=== PATIENT | female | born 1985 | race Caucasian/White ===

== ENCOUNTER → 2018-03-13 | Outpatient (CLI) | payer OTHER, MEDICAID ==
[2018-03-13 16:43] LABS: APPEARANCE,URINE TURBID; BILIRUBIN,URINE NEGATIVE (NEGATIVE); COLOR,URINE YELLOW; GLUCOSE, URINE NEGATIVE (NEGATIVE); KETONES,URINE TRACE mg/dL (NEGATIVE); LEUKOCYTE ESTERASE,URINE LARGE (NEGATIVE); NITRITE,URINE NEGATIVE (NEGATIVE); PROTEIN,URINE 100 mg/dL (NEGATIVE); URINE SPECIFIC GRAVITY 1.014; UROBILINOGEN,URINE NEGATIVE mg/dL (<2.0)
[2018-03-13 16:45] LABS: ABSOLUTE MONOCYTES (AUTO) 0.3 10^3/uL (0.1-1.4); EOSINOPHILS % (AUTO) 1.2 % (0-6); HEMATOCRIT 35.3 % (36.0-47.0); HEMOGLOBIN 11.7 g/dL (12.0-15.5); LYMPHOCYTES % (AUTO) 28.2 % (13-45); MEAN CORPUSCULAR HEMOGLOBIN 27.3 pg (27.0-33.4); MEAN CORPUSCULAR HGB CONC 33.1 g/dL (32.0-36.0); MEAN CORPUSCULAR VOLUME 82 fl (80-97); MONOCYTES % (AUTO) 10.1 % (3-13); PLATELET COUNT 293 10^3/uL (150-450); RED BLOOD COUNT 4.28 10^6/uL (3.72-5.28); RED CELL DISTRIBUTION WIDTH 15.3 % (11.5-14.0); SEGMENTED NEUTROPHILS % (AUTO) 59.5 % (42-78); TOTAL CELLS COUNTED % (AUTO) 100 %; WHITE BLOOD COUNT 3.4 10^3/uL (4.0-10.5)
[2018-03-13 17:05] LABS: ALANINE AMINOTRANSFERASE 19 U/L (9-52); ALBUMIN 4.1 g/dL (3.5-5.0); ALKALINE PHOSPHATASE 101 U/L (38-126); ANION GAP 15 (5-19); ASPARTATE AMINO TRANSFERASE 16 U/L (14-36); BILIRUBIN,DIRECT 0.4 mg/dL (0.0-0.4); BILIRUBIN,TOTAL 0.5 mg/dL (0.2-1.3); BLOOD UREA NITROGEN 21 mg/dL (7-20); CALCIUM 9.3 mg/dL (8.4-10.2); CARBON DIOXIDE 23 mmol/L (22-30); CHLORIDE 106 mmol/L (98-107); GLUCOSE 84 mg/dL (75-110); POTASSIUM 4.5 mmol/L (3.6-5.0); SODIUM 143.5 mmol/L (137-145)
== END ==
LOC: OD 15:32
PROVIDERS: ATTEND Internal Medicine Nephrology
DX: N18.2 Chronic kidney disease, stage 2 (mild) (principal); N20.0 Calculus of kidney
CPT/HCPCS: 36415; 80053; 81001; 83735; 85025

== ENCOUNTER 2018-09-19 11:35 | Inpatient (IN) | payer OTHER, MEDICAID ==
--- NOTE | 2018-09-19 12:01 | ER Document Report ---
ED Medical Screen (RME) - General Chief Complaint: Skin Problem Stated Complaint: SWELLING AROUND NEPHRO TUBE SITE Time Seen by Provider: 09/19/18 11:59 Mode of Arrival: Ambulatory Information source: Parent TRAVEL OUTSIDE OF THE [place] IN LAST 30 DAYS: No - HPI Patient complains to provider of: redness- back Onset: Yesterday - mom noticed red area in R lower back of pt. where nephrostomy tube was pulled several months ago. Mom also states recent fever and lethargy - Related Data Allergies/Adverse Reactions: No Known Allergies Allergy (Unverified 09/19/18 11:39) Physical Exam - Vital signs Vitals: Temp Pulse Resp BP Pulse Ox 99.1 F 86 20 120/75 99 09/19/18 11:45 09/19/18 11:45 09/19/18 11:45 09/19/18 11:45 09/19/18 11:45 Course - Vital Signs Vital signs: Temp Pulse Resp BP Pulse Ox 99.1 F 86 20 120/75 99 09/19/18 11:45 09/19/18 11:45 09/19/18 11:45 09/19/18 11:45 09/19/18 11:45 Doctor's Discharge - Discharge Referrals: Florencio ZABALA MD [Primary Care Provider] - Follow up as needed
[2018-09-19 12:50] LABS: APPEARANCE,URINE TURBID; BILIRUBIN,URINE NEGATIVE (NEGATIVE); COLOR,URINE YELLOW; GLUCOSE, URINE NEGATIVE (NEGATIVE); KETONES,URINE NEGATIVE (NEGATIVE); LEUKOCYTE ESTERASE,URINE LARGE (NEGATIVE); NITRITE,URINE NEGATIVE (NEGATIVE); PROTEIN,URINE 100 mg/dL (NEGATIVE); URINE SPECIFIC GRAVITY 1.005; UROBILINOGEN,URINE NEGATIVE mg/dL (<2.0)
[2018-09-19 14:41] LABS: ABSOLUTE LYMPHOCYTES (AUTO) 0.9 10^3/uL (0.5-4.7); ABSOLUTE MONOCYTES (AUTO) 0.7 10^3/uL (0.1-1.4); ABSOLUTE NEUT (AUTO) 3.7 10^3/uL (1.7-8.2); BASOPHILS % (AUTO) 0.8 % (0-2); EOSINOPHILS % (AUTO) 0.9 % (0-6); HEMATOCRIT 34.6 % (36.0-47.0); MEAN CORPUSCULAR HEMOGLOBIN 29.8 pg (27.0-33.4); MEAN CORPUSCULAR HGB CONC 34.5 g/dL (32.0-36.0); MEAN CORPUSCULAR VOLUME 86 fl (80-97); MONOCYTES % (AUTO) 13.5 % (3-13); PLATELET COUNT 250 10^3/uL (150-450); RED BLOOD COUNT 4.01 10^6/uL (3.72-5.28); RED CELL DISTRIBUTION WIDTH 14.6 % (11.5-14.0); SEGMENTED NEUTROPHILS % (AUTO) 68.8 % (42-78); TOTAL CELLS COUNTED % (AUTO) 100 %; WHITE BLOOD COUNT 5.4 10^3/uL (4.0-10.5)
[2018-09-19 14:51] LABS: ALANINE AMINOTRANSFERASE 15 U/L (9-52); ALBUMIN 3.7 g/dL (3.5-5.0); ALKALINE PHOSPHATASE 105 U/L (38-126); ANION GAP 12 (5-19); ASPARTATE AMINO TRANSFERASE 12 U/L (14-36); BILIRUBIN,DIRECT 0.3 mg/dL (0.0-0.4); BILIRUBIN,TOTAL 0.8 mg/dL (0.2-1.3); BLOOD UREA NITROGEN 15 mg/dL (7-20); CARBON DIOXIDE 26 mmol/L (22-30); CHLORIDE 103 mmol/L (98-107); GLUCOSE 86 mg/dL (75-110); POTASSIUM 5.1 mmol/L (3.6-5.0); SODIUM 140.6 mmol/L (137-145); TOTAL PROTEIN 7.4 g/dL (6.3-8.2)
--- NOTE | 2018-09-19 16:13 | RADIOLOGY REPORT (SQ) ---
EXAM DESCRIPTION: U/S RETROPERITON LTD COMPLETED DATE/TIME: 09/19/2018 2:38 pm REASON FOR STUDY: concern for urinoma/abscess in kidney COMPARISON: None. TECHNIQUE: Dynamic and static grayscale images acquired of the kidneys and bladder and recorded on P ACS. Additional selected color Doppler and spectral images recorded. LIMITATIONS: None. FINDINGS: RIGHT KIDNEY: Normal size. No solid masses identified. Mildly dilated right renal pelvis, 1.5 cm. No calcifications. LEFT KIDNEY: Normal size. Multiple left renal cystic areas, largest measuring 5.2 cm. No solid mas ses identified. No calcifications. BLADDER: Surgically absent. OTHER FINDINGS: No other significant finding. IMPRESSION: Multiple left renal cystic areas, largest measuring 5.2 cm. Mildly dilated right renal pelvis, 1.5 cm. TECHNICAL DOCUMENTATION: JOB ID: [id number] [place]-72 2010 [employer]- All Rights Reserved Reading location - IP/workstation name: [email or web address]
[2018-09-19] MEDS: FENTANYL CITRATE INJ/PF 100 MCG/2 ML AMPUL IV PRN ×2 (16:48→20:56)
[2018-09-19] MEDS ORDERED: PIPERACILLIN/TAZOBACTAM 3.375 GM VIAL IV ONE ×3 (17:30→22:39)
--- NOTE | 2018-09-19 17:30 | ER Document Report ---
ED General - General Chief Complaint: Skin Problem Stated Complaint: SWELLING AROUND NEPHRO TUBE SITE Time Seen by Provider: 09/19/18 11:59 Mode of Arrival: Ambulatory Information source: Patient, Parent TRAVEL OUTSIDE OF THE [place] 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 Mother notes that she had been feeling unwell for a few days and then began to complain of pain today along her left side at which time the mother noted market swelling. She had previously had a nephrostomy tube in this location which was removed in June. Has not had any problems with this since it had been removed until this week - Related Data Allergies/Adverse Reactions: No Known Allergies Allergy (Verified 09/19/18 12:08) Past Medical History - General Information source: Parent - Social History Smoking Status: Never Smoker Chew tobacco use (# tins/day): No Frequency of alcohol use: None Drug Abuse: None Family History: None Patient has suicidal ideation: No Patient has homicidal ideation: No Neurological Medical History: Reports: Hx Seizures Renal/ Medical History: Reports: Hx Kidney Stones. Denies: Hx Peritoneal Dialysis Past Surgical History: Reports: Hx Kidney (Renal Surgery), Hx Neurologic Surgery - spine, Hx Urinary Tract Surgery - bladder removed(neurogenic) Review of Systems - Review of Systems -: Yes All other systems reviewed and negative Physical Exam - Vital signs Vitals: Temp Pulse Resp BP Pulse Ox 99.1 F 86 20 120/75 99 09/19/18 11:45 09/19/18 11:45 09/19/18 11:45 09/19/18 11:45 09/19/18 11:45 - General General appearance: Alert In distress: Mild - HEENT Head: Other - Asymmetric syndromic facies Eyes: Normal Conjunctiva: Normal Cornea: Normal Extraocular movements intact: Yes Eyelashes: Normal Pupils: PERRL - Respiratory Respiratory status: No respiratory distress Chest status: Nontender Breath sounds: Normal Chest palpation: Normal - Cardiovascular Rhythm: Regular Heart sounds: Normal auscultation Murmur: No - Abdominal Inspection: Normal Bowel sounds: Normal Tenderness: Nontender - Back Back: Other - The left flank demonstrates a remarkable erythematous fluctuance and collection which comes to a punctate comedone inferior to the CVA along the left side. Palpable fluctuance, no active drainage - Extremities General upper extremity: Normal inspection, Nontender, Normal strength, Normal temperature General lower extremity: Normal inspection, Nontender, Normal strength, Normal temperature - Neurological Neuro grossly intact: Yes Cognition: Normal Orientation: AAOx4 Gi Coma Scale Eye Opening: Spontaneous [place] Coma Scale Verbal: Incomprehensible Gi Coma Scale Motor: Obeys Commands Gi Coma Scale Total: 12 Motor strength normal: LUE, RUE, LLE, RLE - Psychological Associated symptoms: Confused Course - Re-evaluation Re-evalutation: 09/19/18 17:26 33-year-old female who appears to have an abscess along the right flank at the site of a previous nephrostomy tube. As the mother notes that this patient only has 1 functioning kidney I am concerned that proceeding with CT the abdomen and pelvis could potentially be nephrotoxic in place in danger her single functioning kidney. We will obtain an ultrasound of the kidneys for investigation. Patient's kidney ultrasound makes no comment on the abscess which is obviously over the left kidney, because I am concerned this communicates with the deep space I have contacted [facility] to speak to their urologist Dr. Wright. Dr. Wright notes that without commenting he is not sure whether it is that urology can issue or a general surgery issue as such she would suggest proceeding with CT the abdomen and pelvis as she has a normal GFR and a creatinine which is now returned he thinks that it would be acceptable. We will plan for this patient to undergo CT abdomen and pelvis. Given that the end of my shift has now and that this will likely take an hour or greater I have signed out the care of this patient to Dr. Chaparro Loya who is agreed to help in the care of this patient. Plan will be for this patient undergo CT imaging of the abdomen and pelvis for better abscess characterization and consultation with appropriate service with disposition determination as deemed appropriate. - Vital Signs Vital signs: Temp Pulse Resp BP Pulse Ox 99.1 F 86 20 120/75 99 09/19/18 11:45 09/19/18 11:45 09/19/18 11:45 09/19/18 11:45 09/19/18 11:45 - Laboratory Result Diagrams: 09/19/18 14:00 09/19/18 14:00 Laboratory results interpreted by me: 09/19/18 09/19/18 09/19/18 12:24 14:00 14:00 Hct 34.6 L RDW 14.6 H Monocytes % 13.5 H Potassium 5.1 H Est GFR (Non-Af Amer) 57 L AST 12 L Urine Protein 100 H Urine Blood SMALL H Ur Leukocyte Esterase LARGE H Urine Ascorbic Acid 20 H Discharge - Discharge Clinical Impression: Abscess Back pain Qualifiers: Back pain location: back pain in unspecified location Chronicity: acute Back pain laterality: left Qualified Code(s): M54.9 - Dorsalgia, unspecified Referrals: Florencio ZABALA MD [ACTIVE STAFF] - Follow up as needed
--- NOTE | 2018-09-19 19:40 | RADIOLOGY REPORT (SQ) ---
EXAM DESCRIPTION: CT ABD/PELVIS WITH IV ONLY COMPLETED DATE/TIME: 09/19/2018 7:20 pm REASON FOR STUDY: concern for renal abscess COMPARISON: None. TECHNIQUE: CT scan of the abdomen and pelvis performed using helical scanning technique with dynamic intravenous contrast injection. No oral contrast. Images reviewed with lung, soft tissue, and bone windows. Reconstructed coronal and sagittal MPR images reviewed. Delayed images for evaluation of the urinary system also acquired. All images stored on PACS. All CT scanners at this facility use dose modulation, iterative reconstruction, and/or weight based d osing when appropriate to reduce radiation dose to as low as reasonably achievable (ALARA). [facility]: Dose Right [facility]: CareDose [facility]: Dose Right [facility]: Teradose 4D [facility]: Materialise CONTRAST TYPE AND DOSE: contrast/concentration: Isovue 350.00 mg/ml; Total Contrast Delivered: 67.0 ml; Total Saline Delivered: 20.8 ml RENAL FUNCTION: BUN 15 creatinine 1.12. RADIATION DOSE: CT Rad equipment meets quality standard of care and radiation dose reduction techniq ues were employed. CTDIvol: 5.0 - 6.1 mGy. DLP: 1020 mGy-cm.. LIMITATIONS: None. FINDINGS: LOWER CHEST: No significant findings. No nodules or infiltrates. LIVER: Normal size. No masses. No dilated ducts. SPLEEN: Normal size. No focal lesions. PANCREAS: No masses. No significant calcifications. No adjacent inflammation or peripancreatic fluid collections. Pancreatic duct not dilated. GALLBLADDER: No identified stones by CT criteria. No inflammatory changes to suggest cholecystitis. ADRENAL GLANDS: No significant masses or asymmetry. RIGHT KIDNEY AND URETER: Markedly abnormal appearance of the probable the kidney. Marked heterogenou s appearance with several central fluid collections and a few calcifications. Overall measurement ap proximately 4.5 cm. 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 Moderate hydronephrosis and hydroureter of the upper pole of the kidney. Moderate h ydronephrosis and hydroureter of the lower pole of the kidney. LEFT KIDNEY AND URETER: No solid masses. No significant calcifications. Severe hydronephrosis and hydroureter. Marked thinning of the cortex. Abnormal function with marked delay excretion. AORTA AND VESSELS: No aneurysm. No dissection. Renal arteries, SMA, celiac without stenosis. RETROPERITONEUM: No retroperitoneal adenopathy, hemorrhage or masses. BOWEL AND PERITONEAL CAVITY: No masses or inflammatory changes. No free fluid or peritoneal masses. APPENDIX: Not visualized. PELVIS: No mass. No free fluid. Previous cystectomy with ureteral diversion and ostomy in the right lower quadrant. ABDOMINAL WALL: No masses. No hernias. Indistinct fluid collection in the posterior left flank exten ding to the skin surface, measuring approximately 3.8 cm in width and 3.5 cm in depth. BONES: Surgical changes in the lower lumbar spine with hardware. OTHER: No other significant finding. IMPRESSION: 1. SURGICAL CHANGES OF CYSTECTOMY WITH URETERAL DIVERSION AND OSTOMY IN THE RIGHT LOWER QUADRANT. 2. 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 HYDRONEPHROSIS OF BOTH THE UPPER AND LO WER POLE OF THE KIDNEY. MARKED ABNORMAL APPEARANCE OF THE UPPER POLE OF THE KIDNEY. THIS COULD BE D UE TO CHRONIC OBSTRUCTION. CANNOT EXCLUDE INFECTION. NO PRIOR STUDIES SO CANNOT DETERMINE CHRONICIT Y OF THIS FINDING. 3. SEVERE HYDRONEPHROSIS OF THE LEFT KIDNEY WITH MARKED CORTICAL THINNING AND POOR FUNCTION WITH MARYAM YED EXCRETION. NO PRIOR STUDIES SO CANNOT DETERMINE CHRONICITY OF THIS FINDING. 4. FLUID COLLECTION IN THE SOFT TISSUES OF THE POSTERIOR LEFT FLANK. THIS IS PROBABLY RELATED TO PRE VIOUS PERCUTANEOUS NEPHROSTOMY TUBE. UNKNOWN WHEN THE TUBE WAS PRESENT OR MAY HAVE BEEN REMOVED. TH IS COULD BE FLUID SECONDARY TO RECENT PROCEDURE OR COULD BE ABSCESS. 5. NO OTHER SIGNIFICANT OR ACUTE FINDING IN THE ABDOMEN OR PELVIS ON CT SCAN WITH IV CONTRAST. TECHNICAL DOCUMENTATION: JOB ID: [id number] Quality ID # [id number]: Final reports with documentation of one or more dose reduction techniques (e.g., Au tomated exposure control, adjustment of the mA and/or kV according to patient size, use of iterative reconstruction technique) 2010 [employer]- All Rights Reserved Reading location - IP/workstation name: [email or web address]
--- NOTE | 2018-09-19 20:51 | PDOC CONSULTATION ---
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 Had back surgery and bladder resection with neoileostomy. Had left nephrostomy removed about 3 months ago. Yesterday atarted c/o pains left flank where old nephrostomy was. Tday brought to ER by her mother. Had a CT scan which showed subcutaneous abscess but appears involving part of muscle but not into the left kidney. C/o fever and chills today. Past Medical History Neurological Medical History: Reports: Seizures Past Surgical History Past Surgical History: Reports: Other - uretero-ileostomy Social History Smoking Status: Never Smoker Family History Family History: None Parental Family History Reviewed: Yes Children Family History Reviewed: No Sibling(s) Family History Reviewed.: No Medication/Allergy Allergies/Adverse Reactions: No Known Allergies Allergy (Verified 09/19/18 12:08) Review of Systems Constitutional: PRESENT: as per HPI Eyes: PRESENT: other - no visual/hearing changes Cardiovascular: PRESENT: other - no chest pains/cough Gastrointestinal: PRESENT: abdominal pain - left flank pains Physical Exam Vital Signs: Temp Pulse Resp BP Pulse Ox 98.6 F 85 16 111/72 100 09/19/18 20:04 09/19/18 20:04 09/19/18 20:04 09/19/18 20:04 09/19/18 20:04 General appearance: PRESENT: cooperative, mild distress Head exam: PRESENT: atraumatic Eye exam: PRESENT: conjunctiva pink Mouth exam: PRESENT: moist Neck exam: PRESENT: full ROM Respiratory exam: PRESENT: clear to auscultation megan Cardiovascular exam: PRESENT: RRR Pulses: PRESENT: normal radial pulses Vascular exam: PRESENT: normal capillary refill GI/Abdominal exam: PRESENT: soft, tenderness - left flank with erythematous swelling Rectal exam: PRESENT: deferred Neurological exam: PRESENT: alert, awake, oriented to person, oriented to place , oriented to time, oriented to situation Psychiatric exam: PRESENT: appropriate affect Results Impressions: Renal Ultrasound 09/19/18 14:02 IMPRESSION: Multiple left renal cystic areas, largest measuring 5.2 cm. Mildly dilated right renal pelvis, 1.5 cm. Abdomen/Pelvis CT 09/19/18 16:20 IMPRESSION: 1. SURGICAL CHANGES OF CYSTECTOMY WITH URETERAL DIVERSION AND OSTOMY IN THE RIGHT LOWER QUADRANT. 2. 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 HYDRONEPHROSIS OF BOTH THE UPPER AND LOWER POLE OF THE KIDNEY. MARKED ABNORMAL APPEARANCE OF THE UPPER POLE OF THE KIDNEY. THIS COULD BE DUE TO CHRONIC OBSTRUCTION. CANNOT EXCLUDE INFECTION. NO PRIOR STUDIES SO CANNOT DETERMINE CHRONICITY OF THIS FINDING. 3. SEVERE HYDRONEPHROSIS OF THE LEFT KIDNEY WITH MARKED CORTICAL THINNING AND POOR FUNCTION WITH DELAYED EXCRETION. NO PRIOR STUDIES SO CANNOT DETERMINE CHRONICITY OF THIS FINDING. 4. FLUID COLLECTION IN THE SOFT TISSUES OF THE POSTERIOR LEFT FLANK. THIS IS PROBABLY RELATED TO PREVIOUS PERCUTANEOUS NEPHROSTOMY TUBE. UNKNOWN WHEN THE TUBE WAS PRESENT OR MAY HAVE BEEN REMOVED. THIS COULD BE FLUID SECONDARY TO RECENT PROCEDURE OR COULD BE ABSCESS. 5. NO OTHER SIGNIFICANT OR ACUTE FINDING IN THE ABDOMEN OR PELVIS ON CT SCAN WITH IV CONTRAST. Assessment & Plan - Time Time Spent: 30 to 50 Minutes - Inpatient Certification Medical Necessity: Need For IV Fluids, Need for Pain Control, Need for IV Antibiotics, Need for Surgery - Plan Summary Plan Summary: IV antibiotics. NPO from [facility] For I&D left flank abscess tomorrow at 8 am.
[2018-09-19] MEDS ORDERED: ONDANSETRON HCL INJ/PF 4 MG/2 ML SDV IV PRN (20:57)
[2018-09-19] MEDS ORDERED: DEXTROSE 50%-WATER 25 GM/50 ML DISP.SYRIN IV PRN ×2 (20:57)
[2018-09-19] MEDS ORDERED: MAG HYDROX/AL HYDROX/SIMETH SUSP 30 ML UDCUP PO PRN (20:57)
[2018-09-19] MEDS ORDERED: PROMETHAZINE HCL 25 MG TABLET PO PRN (20:57)
[2018-09-19] MEDS ORDERED: NORMAL SALINE 1000 ML 1,000 ML IV PRN (20:57)
[2018-09-19] MEDS ORDERED: ACETAMINOPHEN 325 MG TABLET PO PRN (20:57)
[2018-09-19] MEDS ORDERED: GLUCAGON,HUMAN RECOMB 1 MG INJ SUBCUT PRN (20:57)
[2018-09-19] MEDS ORDERED: DEXTROSE 40% GEL 15 GM TUBE PO PRN ×2 (20:57)
[2018-09-19] MEDS ORDERED: PIPERACILLIN/TAZOBACTAM 3.375 GM VIAL IV PRN (21:00)
[2018-09-19] MEDS ORDERED: VANCOMYCIN HCL 0 MG in DEXTROSE 5%-WATER 250 ML IV NR (21:15)
[2018-09-19] MEDS ORDERED: VANCOMYCIN HCL INJ 500 MG VIAL IV PRN (21:34)
--- NOTE | 2018-09-19 21:37 | PDOC H&P ---
History of Present Illness Admission Date/PCP: 09/19/18 20:37 ABBY AVILES MD Patient complains of: Left flank pain History of Present Illness: ERIC WHITFIELD is a 33 year old female with history of mental retardation, neurogenic bladder with cystectomy and ureteral diversion plus ostomy in right lower quadrant, comes to the emergency department as she was complaining of left flank pain for 1 day. Her mother is at the bedside and tells me that the patient usually does no complaint of pain but last night she mentioned to her mother who thought it was because she was standing for too long. Today in the morning mother went to see that area as she was a still complaining of severe pain up to 9/10 intensity and found her skin erythematous, swollen, very tender to palpation, she did not notice any secretion. Mother tells me that she was a little bit lethargic, hot and sweaty, she did not take her temperature, denies chills, nausea, vomiting, dizziness, lightheadedness, hematuria or purulent secretions. Patient has urostomy bag with clear urine. Her mother tells me that the last May patient was found with a left kidney stone, as patient does not have that they could not place a stent, usually is placed to nephrostomy tubes one in the left flank and second 1 going to the urostomy bag. 10 days later after nephrostomy tubes placed the one that was going to the urostomy bag was removed and the second 1 was removed in June. Mother tells me that the skin infection is exactly in the area where the left flank nephrostomy tube was placed. On chronic nitrofurantoin 100 mg twice a day initiated by her infectious diseases doctor. CT of the pelvis shows a possible abscess in the posterior left flank with many surgical changes secondary to her cystectomy with ureteral diversion with ostomy in the right lower quadrant. Dr. Loyola from the general surgery department was contacted from the emergency department, he had a look at the CT scan and plan for abscess drainage tomorrow. Given 1 dose of IV Zosyn. Nephrostomy tubes placed by Dr. Billy Martines MD in [facility] Elias Ku MD Nephrology Bernabe Perry MD Past Medical History EENT Medical History: Reports: Eyes - Congenital eyes problem, Other - Congenital decreased hearing, uses right hearing aids Neurological Medical History: Reports: Seizures - History of seizure when she was very young, she does not have any seizures, Other - Mental Retardation Neurological History Note: Not on seizure medications Renal/ Medical History: Reports: Other - Neurogenic bladder, status post cystectomy Past Surgical History Past Surgical History: Cystectomy with ureteral diversion plus ostomy right lower quadrant 5 years ago approximately Past Surgical History: Reports: Other - uretero-ileostomy Social History Smoking Status: Never Smoker Frequency of Alcohol Use: None Hx Recreational Drug Use: No Hx Prescription Drug Abuse: No Past Social History Note: Lives with her mother who is at the bedside and her stepfather Family History Family History: None Family History: Mother 58 years old with no medical conditions. Father 57 years old unknown any medical condition Parental Family History Reviewed: Yes - As above Children Family History Reviewed: NA Sibling(s) Family History Reviewed.: NA Medication/Allergy Allergies/Adverse Reactions: No Known Allergies Allergy (Verified 09/19/18 12:08) Review of Systems Review of Systems: As outlined above, others negative Physical Exam Vital Signs: Temp Pulse Resp BP Pulse Ox 98.6 F 85 16 111/72 100 09/19/18 20:04 09/19/18 20:04 09/19/18 20:04 09/19/18 20:04 09/19/18 20:04 Additional comments: General appearance: Well-developed, well-nourished, alert and cooperative, and appears to be in no acute distress Head: Normocephalic Eyes: PEERL, EOMI, vision is grossly intact. Ears: External auditory canal and tympanic membranes clear, hearing severely decreased, use hearing aids nose: No nasal discharge. Throat: Oral cavity and pharynx normal. No inflammation, swelling, exudate or lesions. Neck: Neck supple, nontender without lymphadenopathy, masses or thyromegaly. Cardiac: Normal S1 and S2. No S3, S4 or murmurs. Rhythm is regular. There is no cyanosis or pallor. Extremities are warm and well perfused. Capillary refill is less than 2 seconds. No carotid bruits. Lungs: Clear to auscultation and percussion without rales, rhonchi, wheezing or diminished breath sounds. Not using accessory muscles. Abdomen: Positive bowel sounds. Soft. Nondistended, nontender. No guarding or rebound. No masses. No hepatosplenomegaly. Urostomy bag in the right lower quadrant with clear urine. Extremities: Right foot chronic nonpitting edema. Peripheral pulses intact. No varicosities. Neurological: Cranial nerves II through XII grossly intact. Strength and sensation symmetric and intact throughout. Reflexes 2+ throughout. Skin: Left posterior flank area with an area of erythema, edema, warmth, very tender to palpation, sizable 7 cm diameter, no active secretions, scars of prior nephrostomy tube in the middle of the lesion. Warm and dry. Psychiatric: The mental examination revealed the patient was oriented to person , place. Able to answer questions and keep a conversation. Results Laboratory Results: 09/19/18 09/19/18 09/19/18 12:24 12:24 14:00 WBC 5.4 RBC 4.01 Hgb 12.0 Hct 34.6 L MCV 86 MCH 29.8 MCHC 34.5 RDW 14.6 H Plt Count 250 Seg Neutrophils % 68.8 Lymphocytes % 16.0 Monocytes % 13.5 H Eosinophils % 0.9 Basophils % 0.8 Absolute Neutrophils 3.7 Absolute Lymphocytes 0.9 Absolute Monocytes 0.7 Absolute Eosinophils 0.0 Absolute Basophils 0.0 Sodium Potassium Chloride Carbon Dioxide Anion Gap BUN Creatinine Est GFR ( Amer) Glucose Calcium Total Bilirubin Direct Bilirubin AST ALT Alkaline Phosphatase Total Protein Albumin Urine Color YELLOW Urine Appearance TURBID Urine pH 7.0 Ur Specific Delmar 1.005 Urine Protein 100 H Urine Glucose (UA) NEGATIVE Urine Ketones NEGATIVE Urine Blood SMALL H Urine Nitrite NEGATIVE Urine Bilirubin NEGATIVE Urine Urobilinogen NEGATIVE Ur Leukocyte Esterase LARGE H Urine WBC (Auto) >182 Urine RBC (Auto) 16 Urine Bacteria (Auto) 3+ Urine WBC Clumps MANY Squamous Epi Cells Auto 2 Urine Mucus (Auto) OCC Urine Ascorbic Acid 20 H Urine HCG, Qual NEGATIVE 09/19/18 14:00 WBC RBC Hgb Hct MCV MCH MCHC RDW Plt Count Seg Neutrophils % Lymphocytes % Monocytes % Eosinophils % Basophils % Absolute Neutrophils Absolute Lymphocytes Absolute Monocytes Absolute Eosinophils Absolute Basophils Sodium 140.6 Potassium 5.1 H Chloride 103 Carbon Dioxide 26 Anion Gap 12 BUN 15 Creatinine 1.12 Est GFR ( Amer) > 60 Glucose 86 Calcium 9.0 Total Bilirubin 0.8 Direct Bilirubin 0.3 AST 12 L ALT 15 Alkaline Phosphatase 105 Total Protein 7.4 Albumin 3.7 Urine Color Urine Appearance Urine pH Ur Specific Delmar Urine Protein Urine Glucose (UA) Urine Ketones Urine Blood Urine Nitrite Urine Bilirubin Urine Urobilinogen Ur Leukocyte Esterase Urine WBC (Auto) Urine RBC (Auto) Urine Bacteria (Auto) Urine WBC Clumps Squamous Epi Cells Auto Urine Mucus (Auto) Urine Ascorbic Acid Urine HCG, Qual Impressions: Renal Ultrasound 09/19/18 14:02 IMPRESSION: Multiple left renal cystic areas, largest measuring 5.2 cm. Mildly dilated right renal pelvis, 1.5 cm. Abdomen/Pelvis CT 09/19/18 16:20 IMPRESSION: 1. SURGICAL CHANGES OF CYSTECTOMY WITH URETERAL DIVERSION AND OSTOMY IN THE RIGHT LOWER QUADRANT. 2. 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 HYDRONEPHROSIS OF BOTH THE UPPER AND LOWER POLE OF THE KIDNEY. MARKED ABNORMAL APPEARANCE OF THE UPPER POLE OF THE KIDNEY. THIS COULD BE DUE TO CHRONIC OBSTRUCTION. CANNOT EXCLUDE INFECTION. NO PRIOR STUDIES SO CANNOT DETERMINE CHRONICITY OF THIS FINDING. 3. SEVERE HYDRONEPHROSIS OF THE LEFT KIDNEY WITH MARKED CORTICAL THINNING AND POOR FUNCTION WITH DELAYED EXCRETION. NO PRIOR STUDIES SO CANNOT DETERMINE CHRONICITY OF THIS FINDING. 4. FLUID COLLECTION IN THE SOFT TISSUES OF THE POSTERIOR LEFT FLANK. THIS IS PROBABLY RELATED TO PREVIOUS PERCUTANEOUS NEPHROSTOMY TUBE. UNKNOWN WHEN THE TUBE WAS PRESENT OR MAY HAVE BEEN REMOVED. THIS COULD BE FLUID SECONDARY TO RECENT PROCEDURE OR COULD BE ABSCESS. 5. NO OTHER SIGNIFICANT OR ACUTE FINDING IN THE ABDOMEN OR PELVIS ON CT SCAN WITH IV CONTRAST. Assessment & Plan - Diagnosis (1) Abscess or cellulitis of flank Is this a current diagnosis for this admission?: Yes Plan: Patient comes with left flank pain for 1 day, CT shows a possible abscess which is verified by physical examination. Dr. Loyola from the general surgery department evaluated the CT and plan for I&D tomorrow. Patient will be n.p.o. after midnight. In the meantime she will be on IV Zosyn and IV vancomycin. Hopefully patient does not have more complications as the abscess is located where the nephrostomy tube was placed Ab[place] this year. Please follow blood cultures. She will be on IV pain medication and nausea medicine as needed. (2) UTI (urinary tract infection) Qualifiers: Encounter type: initial encounter Is this a current diagnosis for this admission?: Yes Plan: Urinalysis positive for urinary tract infection, patient has a complicated urological history history. We do not have prior urinalysis or urine cultures. Will be on IV Zosyn and IV vancomycin for the abscess that will cover for this UTI. Will need records from her prior admission at [facility]. Please follow urine cultures. I will place a consultation for Dr. Perry that can see her Friday or Friday, at his convenience. (3) History of creation of ostomy Is this a current diagnosis for this admission?: Yes Plan: Patient has a urostomy bag as she has history of cystectomy secondary to neurogenic bladder with ureteral diversion. Urine clear. (4) DVT prophylaxis Is this a current diagnosis for this admission?: Yes Plan: Heparin - Time Time Spent: 50 to 70 Minutes Anticipated discharge: Home - Inpatient Certification Based on my medical assessment, after consideration of the patient's comorbidities, presenting symptoms, or acuity I expect that the services needed warrant INPATIENT care.: Yes I certify that my determination is in accordance with my understanding of Medicare's requirements for reasonable and necessary INPATIENT services [42 CFR 412.3e].: Yes Medical Necessity: Risk of Complication if Not Cared For in Hospital - Plan Summary Plan Summary: Plan discussed with mother who is at the bedside, agree with it
[2018-09-19] MEDS ORDERED: VANCOMYCIN HCL 500 MG in DEXTROSE 5%-WATER 100 ML IV ONE (22:00)
[2018-09-19] MEDS ORDERED: VANCOMYCIN HCL INJ 500 MG VIAL ONE (22:38)
[2018-09-19] MEDS: HEPARIN SOD (PORCINE) 5,000 UNIT/ML 1 ML SYRINGE SUBCUT SCH (22:54)
[2018-09-19] MEDS: MORPHINE SULFATE 10 MG/ML INJ IV PRN (23:21)
[2018-09-20] MEDS: PIPERACILLIN/TAZOBACTAM 3.375 GM VIAL IV SCH ×2 (00:49→05:30)
[2018-09-20] MEDS: HEPARIN SOD (PORCINE) 5,000 UNIT/ML 1 ML SYRINGE SUBCUT SCH ×3 (05:02→21:01)
[2018-09-20 06:59] LABS: ABSOLUTE EOSINOPHILS # (AUTO) 0.1 10^3/uL (0.0-0.6); ABSOLUTE LYMPHOCYTES (AUTO) 0.6 10^3/uL (0.5-4.7); ABSOLUTE MONOCYTES (AUTO) 0.7 10^3/uL (0.1-1.4); ABSOLUTE NEUT (AUTO) 4.9 10^3/uL (1.7-8.2); BASOPHILS % (AUTO) 0.7 % (0-2); EOSINOPHILS % (AUTO) 0.8 % (0-6); HEMATOCRIT 32.2 % (36.0-47.0); HEMOGLOBIN 10.8 g/dL (12.0-15.5); LYMPHOCYTES % (AUTO) 9.2 % (13-45); MEAN CORPUSCULAR HEMOGLOBIN 29.2 pg (27.0-33.4); MEAN CORPUSCULAR HGB CONC 33.6 g/dL (32.0-36.0); MEAN CORPUSCULAR VOLUME 87 fl (80-97); MONOCYTES % (AUTO) 11.8 % (3-13); PLATELET COUNT 235 10^3/uL (150-450); RED CELL DISTRIBUTION WIDTH 14.3 % (11.5-14.0); SEGMENTED NEUTROPHILS % (AUTO) 77.5 % (42-78); TOTAL CELLS COUNTED % (AUTO) 100 %; WHITE BLOOD COUNT 6.3 10^3/uL (4.0-10.5)
[2018-09-20 07:02] LABS: INTERNATIONAL RATION (INR) 1.14; PROTHROMBIN TIME 15.1 SEC (11.4-15.4)
[2018-09-20 07:03] LABS: PARTIAL THROMBOPLASTIN TIME 31.5 SEC (23.5-35.8)
[2018-09-20 07:18] LABS: ANION GAP 10 (5-19); BLOOD UREA NITROGEN 15 mg/dL (7-20); CALCIUM 8.5 mg/dL (8.4-10.2); CARBON DIOXIDE 24 mmol/L (22-30); CHLORIDE 109 mmol/L (98-107); GLUCOSE 127 mg/dL (75-110); POTASSIUM 4.4 mmol/L (3.6-5.0); SODIUM 142.8 mmol/L (137-145)
[2018-09-20] MEDS ORDERED: LIDOCAINE 1% INJ-PF (10 MG/ML) 30 ML SDV ONE (07:35)
[2018-09-20] MEDS ORDERED: LIDOCAINE 2% INJ-PF (20 MG/ML) 10 ML AMPUL ONE (07:55)
[2018-09-20] MEDS ORDERED: FENTANYL CITRATE INJ/PF 100 MCG/2 ML AMPUL ONE ×2 (07:55→09:08)
[2018-09-20] MEDS ORDERED: MIDAZOLAM 2 MG/2 ML INJ ONE (07:55)
[2018-09-20] MEDS ORDERED: PROPOFOL INJ 200 MG/20 ML VIAL IV ONE (07:56)
[2018-09-20] MEDS ORDERED: DIPHENHYDRAMINE HCL 50 MG/ML VIAL IV PRN (08:39)
[2018-09-20] MEDS ORDERED: PROMETHAZINE HCL INJ 25 MG/1 ML VIAL IV PRN ×2 (08:39)
[2018-09-20] MEDS ORDERED: LIDOCAINE 0.5% INJ-PF (5 MG/ML) 50 ML SDV ONE (08:39)
[2018-09-20] MEDS ORDERED: ONDANSETRON HCL INJ/PF 4 MG/2 ML SDV IV PRN (08:39)
[2018-09-20] MEDS ORDERED: MEPERIDINE HCL/PF INJ 25 MG/1 ML DISP.SYRIN IV PRN (08:39)
[2018-09-20] MEDS ORDERED: FENTANYL CITRATE INJ/PF 100 MCG/2 ML AMPUL IV PRN ×3 (08:39)
[2018-09-20] MEDS ORDERED: BUPIVACAINE HCL 0.5 % INJ/PF 30 ML SDV ONE (08:43)
[2018-09-20] MEDS: MORPHINE SULFATE 10 MG/ML INJ IV PRN ×2 (10:54→21:04)
[2018-09-20] MEDS: PIPERACILLIN SODIUM/TAZOBACTAM 3.375 GM in NORMAL SALINE 100 ML IV SCH ×3 (13:05→23:09)
--- NOTE | 2018-09-20 15:39 | PDOC PROGRESS REPORT ---
Subjective Progress Note for:: 09/20/18 Subjective:: 09/19/18: ERIC WHITFIELD is a 33 year old female with a 1 day history of left flank pain. Her mother, acting as her historian, relates that Eric began complaining of pain on the evening prior to admission. The pain gradually increased over the next through the night and was persistent throughout the day resulting in her emergency room visit. Pain was a constant aching in the lower posterior left flank which started as a mild pain and progressed to being a severe pain by the time she was seen in the emergency room. Eric's pain was accompanied by increasing redness and swelling with tenderness to touch in the skin of the left lower posterior flank. Eric also had the associated symptoms of lethargy , diaphoresis and subjective fever. Her mother denies chills, nausea, vomiting , dizziness, lightheadedness, hematuria or purulent secretions. Eric has a history of kidney stones with nephrostomy tubes placed in the past. The current site of pain is in the area where a nephrostomy tube was removed 3 months ago. She also has a past medical history of mental retardation, neurogenic bladder with cystectomy and ureteral diversion plus ostomy in right lower quadrant and takes nitrofurantoin 100 mg twice a day on a chronic basis as initiated by her infectious disease physician for suppression of her chronic urinary tract infections. Nephrostomy tubes placed by Dr. Billy Martines MD in [facility]; Urology: Elias Ku MD; Nephrology: Bernabe Perry MD In the emergency room a CT of the pelvis showed a possible abscess in the posterior left flank with many surgical changes secondary to her cystectomy with ureteral diversion with ostomy in the right lower quadrant. Dr. Loyola from the general surgery department was contacted and plans for abscess drainage tomorrow. She was started on IV antibiotics with Zosyn and vancomycin and admitted to the hospitalist service for further care. 09/20/18: Eric has just returned from surgery where she had an incision and drainage of her left flank abscess. Dr. Loyola and I have discussed and great detail and her abscess was through the subcutaneous tissue and involved the upper layer of fascia but did not penetrate through the muscular layer. A large volume of pus was drained and a culture was obtained. Eric has been doing fairly well postoperatively with no nausea or vomiting. She remains somewhat lethargic and somnolent although she is easily aroused and answers questions appropriately. She admits that she has some pain in her back but it is better than it had been earlier. I have discussed the fact that the patient will need to be on broad- spectrum IV antibiotics until her culture results are available and an appropriate focused antibiotic therapy regiment can be initiated. Reason For Visit: LEFT LOWER BACK ABSCESS Physical Exam Vital Signs: Temp Pulse Resp BP Pulse Ox 100.2 F 106 H 15 91/53 L 96 09/20/18 07:08 09/20/18 07:08 09/20/18 07:08 09/20/18 07:08 09/20/18 07:08 Intake & Output 09/18/18 09/19/18 09/20/18 23:59 23:59 22:59 Intake Total 322 Output Total 775 Balance -453 Weight 62.1 kg 62.1 kg General appearance: PRESENT: no acute distress, cooperative, other - Mildly lethargic and somnolent but easily arousable Head exam: PRESENT: atraumatic, normocephalic Eye exam: PRESENT: conjunctiva pink, EOMI Ear exam: PRESENT: normal external ear exam. ABSENT: drainage Mouth exam: PRESENT: dry mucosa, neck supple Neck exam: ABSENT: JVD, thyromegaly, tracheal deviation Respiratory exam: PRESENT: clear to auscultation megan, symmetrical, unlabored Cardiovascular exam: PRESENT: RRR. ABSENT: clicks, diastolic murmur, gallop, rubs, systolic murmur Pulses: PRESENT: normal radial pulses, normal dorsalis pedis pul Vascular exam: PRESENT: normal capillary refill. ABSENT: pallor GI/Abdominal exam: PRESENT: normal bowel sounds, soft Rectal exam: PRESENT: deferred Extremities exam: ABSENT: joint swelling, pedal edema Musculoskeletal exam: PRESENT: tenderness - Tenderness noted in the left flank region posteriorly. There is a postoperative dressing in this area and the patient does experience pain in the area is palpated lightly.. ABSENT: deformity, dislocation Neurological exam: PRESENT: alert, oriented to person, oriented to place, oriented to time, oriented to situation, CN II-XII grossly intact. ABSENT: motor sensory deficit Psychiatric exam: PRESENT: appropriate affect, normal mood Skin exam: PRESENT: dry, warm, other - Left flank wound, as previously mentioned , covered by surgical dressing which is not removed for my evaluation.. ABSENT : jaundice, rash, urticaria Results Laboratory Results: 09/20/18 06:48 09/20/18 06:48 09/20/18 09/20/18 09/20/18 06:48 06:48 06:48 WBC 6.3 RBC 3.70 L Hgb 10.8 L Hct 32.2 L MCV 87 MCH 29.2 MCHC 33.6 RDW 14.3 H Plt Count 235 Seg Neutrophils % 77.5 Lymphocytes % 9.2 L Monocytes % 11.8 Eosinophils % 0.8 Basophils % 0.7 Absolute Neutrophils 4.9 Absolute Lymphocytes 0.6 Absolute Monocytes 0.7 Absolute Eosinophils 0.1 Absolute Basophils 0.0 Sodium 142.8 Potassium 4.4 Chloride 109 H Carbon Dioxide 24 Anion Gap 10 BUN 15 Creatinine 1.27 H Est GFR ( Amer) 59 L Est GFR (Non-Af Amer) 49 L Glucose 127 H Lactic Acid < 0.5 L Calcium 8.5 Impressions: Renal Ultrasound 09/19/18 14:02 IMPRESSION: Multiple left renal cystic areas, largest measuring 5.2 cm. Mildly dilated right renal pelvis, 1.5 cm. Abdomen/Pelvis CT 09/19/18 16:20 IMPRESSION: 1. SURGICAL CHANGES OF CYSTECTOMY WITH URETERAL DIVERSION AND OSTOMY IN THE RIGHT LOWER QUADRANT. 2. 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 HYDRONEPHROSIS OF BOTH THE UPPER AND LOWER POLE OF THE KIDNEY. MARKED ABNORMAL APPEARANCE OF THE UPPER POLE OF THE KIDNEY. THIS COULD BE DUE TO CHRONIC OBSTRUCTION. CANNOT EXCLUDE INFECTION. NO PRIOR STUDIES SO CANNOT DETERMINE CHRONICITY OF THIS FINDING. 3. SEVERE HYDRONEPHROSIS OF THE LEFT KIDNEY WITH MARKED CORTICAL THINNING AND POOR FUNCTION WITH DELAYED EXCRETION. NO PRIOR STUDIES SO CANNOT DETERMINE CHRONICITY OF THIS FINDING. 4. FLUID COLLECTION IN THE SOFT TISSUES OF THE POSTERIOR LEFT FLANK. THIS IS PROBABLY RELATED TO PREVIOUS PERCUTANEOUS NEPHROSTOMY TUBE. UNKNOWN WHEN THE TUBE WAS PRESENT OR MAY HAVE BEEN REMOVED. THIS COULD BE FLUID SECONDARY TO RECENT PROCEDURE OR COULD BE ABSCESS. 5. NO OTHER SIGNIFICANT OR ACUTE FINDING IN THE ABDOMEN OR PELVIS ON CT SCAN WITH IV CONTRAST. Assessment & Plan - Diagnosis (1) Abscess or cellulitis of flank Is this a current diagnosis for this admission?: Yes Plan: Patient will be continued on broad-spectrum antibiotics utilizing Zosyn and vancomycin until such time as her blood/wound/urine culture and sensitivities enable a reasonable focused antibiotic therapy plan. Daily CBCs and metabolic profiles will be obtained. At the time of admission there is no evidence to support the diagnosis of sepsis. (2) History of nephrolithiasis Is this a current diagnosis for this admission?: Yes Plan: Patient has history of nephrolithiasis in the past. We will make a distinct effort at keeping her well-hydrated and follow her daily laboratory evaluations including a CBC metabolic profile and a magnesium level. (3) Chronic urinary tract infection, suppressed Is this a current diagnosis for this admission?: Yes Plan: Patient has a history of chronic urinary tract infection and has been on suppressive therapy utilizing Macrobid. This should be re-continued after she has finished her acute antibiotic therapy for her left flank abscess. (4) DVT prophylaxis Is this a current diagnosis for this admission?: Yes Plan: Patient will be continued on DVT prophylaxis utilizing SCDs and heparin. (5) Mental impairment Is this a current diagnosis for this admission?: Yes Plan: Patient has a history of mild chronic mental impairment. I will make every effort to make sure that she understands the details of her medical care and I will do my best to enable her to make decisions or at least participate in making decisions about her medical care with her mother. - Time Time Spent with patient: Less than 15 minutes
[2018-09-20] MEDS: VANCOMYCIN HCL 1,250 MG in DEXTROSE 5%-WATER 250 ML IV SCH (15:56)
[2018-09-20] MEDS: NORMAL SALINE 1000 ML 1,000 ML IV PRN (20:51)
--- NOTE | 2018-09-20 21:21 | OPERATIVE REPORT E ---
Operative Report NAME: ERIC WHITFIELD : 1985 AGE: 33Y DATE OF SURGERY: 09/20/2018 ROOM: 415 PREOPERATIVE DIAGNOSIS: ABSCESS OF THE LEFT LEG. POSTOPERATIVE DIAGNOSIS: ABSCESS OF THE LEFT LEG, TO INCLUDE MUSCLE. OPERATION: Incision and drainage of abscess to the muscle with pulse lavage and packing. SURGEON: SYDNEY NELSON M.D. ANESTHESIA: Local MAC. INDICATION: This is a 33-year-old female who had a previous nephrostomy tube removed from the left flank about 3 months ago. The patient noted a lump in the left flank 2 days ago that is tender and warm. 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 DESCRIPTION OF PROCEDURE: After adequate IV sedation the patient was placed in a right lateral decubitus position and the left flank was then prepped and draped in the usual sterile fashion. Appropriate timeout was then called. Next, 1% lidocaine was then injected through the skin around the bulging site on the left flank. A transverse incision was made over the bulge and a gush of pus extruded out. A sample of pus was sent for C and S. The cavity was subsequently finger palpated and appears to be going medially towards the iliac site. The incision is extended medially for a total distance of about 7 cm. The area was pulse lavaged with a liter of saline and further palpation noted that the abscess cavity going underneath the fascia towards the muscle. The fascia was then anesthetized with lidocaine and was subsequently divided with the use of cautery. The abscess cavity appears to have stopped right on the muscle. The abscess cavity was again pulse lavaged with 2 liters of saline for a total of 3 liters. Hemostasis was then controlled with cautery. The cavity was subsequently packed with a bottle of half inch Iodoform gauze. A sterile 4 x 4 and ABD pads were placed over the packing. The patient tolerated the procedure well. Needle, instrument and sponge counts were all correct. Estimated blood loss about 30 mL. Just prior to packing, however, the area was injected with 0.5% Marcaine about 30 mL, this is more for pain control. The patient was then brought to the recovery room in satisfactory condition. DICTATING PHYSICIAN: SYDNEY NELSON M.D. [id number] PHY#: [id number] ID: [id number] JOB#: [id number] ACCT: [id number] cc:SYDNEY NELSON M.D. >
[2018-09-21] MEDS: OXYCODONE-ACETAMINOPHEN 5-325 MG TABLET PO PRN ×2 (04:51→13:38)
[2018-09-21] MEDS: NORMAL SALINE 1000 ML 1,000 ML IV PRN ×2 (04:53→21:27)
[2018-09-21] MEDS: PIPERACILLIN SODIUM/TAZOBACTAM 3.375 GM in NORMAL SALINE 100 ML IV SCH ×3 (06:25→18:07)
[2018-09-21] MEDS: HEPARIN SOD (PORCINE) 5,000 UNIT/ML 1 ML SYRINGE SUBCUT SCH ×3 (06:29→21:27)
[2018-09-21 10:00] LABS: MEAN CORPUSCULAR VOLUME 88 fl (80-97)
[2018-09-21 10:05] LABS: HEMATOCRIT 28.6 % (36.0-47.0); HEMOGLOBIN 9.7 g/dL (12.0-15.5); MEAN CORPUSCULAR HEMOGLOBIN 29.6 pg (27.0-33.4); MEAN CORPUSCULAR HGB CONC 33.9 g/dL (32.0-36.0); PLATELET COUNT 203 10^3/uL (150-450); RED BLOOD COUNT 3.26 10^6/uL (3.72-5.28); RED CELL DISTRIBUTION WIDTH 14.6 % (11.5-14.0)
[2018-09-21 10:06] LABS: WHITE BLOOD COUNT 2.9 10^3/uL (4.0-10.5)
[2018-09-21] MEDS: VANCOMYCIN HCL 1,250 MG in DEXTROSE 5%-WATER 250 ML IV SCH (10:18)
[2018-09-21 10:22] LABS: ALANINE AMINOTRANSFERASE 10 U/L (9-52); ALBUMIN 2.8 g/dL (3.5-5.0); ALKALINE PHOSPHATASE 70 U/L (38-126); ANION GAP 10 (5-19); ASPARTATE AMINO TRANSFERASE 12 U/L (14-36); BILIRUBIN,DIRECT 0.1 mg/dL (0.0-0.4); BILIRUBIN,TOTAL 0.4 mg/dL (0.2-1.3); BLOOD UREA NITROGEN 15 mg/dL (7-20); CALCIUM 8.3 mg/dL (8.4-10.2); CARBON DIOXIDE 23 mmol/L (22-30); CHLORIDE 110 mmol/L (98-107); GLUCOSE 117 mg/dL (75-110); POTASSIUM 4.3 mmol/L (3.6-5.0); SODIUM 142.7 mmol/L (137-145); TOTAL PROTEIN 5.9 g/dL (6.3-8.2)
--- NOTE | 2018-09-21 16:06 | PDOC PROGRESS REPORT ---
Subjective Progress Note for:: 09/21/18 Subjective:: 09/19/18: ERIC WHITFIELD is a 33 year old female with a 1 day history of left flank pain. Her mother, acting as her historian, relates that Eric began complaining of pain on the evening prior to admission. The pain gradually increased over the next through the night and was persistent throughout the day resulting in her emergency room visit. Pain was a constant aching in the lower posterior left flank which started as a mild pain and progressed to being a severe pain by the time she was seen in the emergency room. Eric's pain was accompanied by increasing redness and swelling with tenderness to touch in the skin of the left lower posterior flank. Eric also had the associated symptoms of lethargy , diaphoresis and subjective fever. Her mother denies chills, nausea, vomiting , dizziness, lightheadedness, hematuria or purulent secretions. Eric has a history of kidney stones with nephrostomy tubes placed in the past. The current site of pain is in the area where a nephrostomy tube was removed 3 months ago. She also has a past medical history of mental retardation, neurogenic bladder with cystectomy and ureteral diversion plus ostomy in right lower quadrant and takes nitrofurantoin 100 mg twice a day on a chronic basis as initiated by her infectious disease physician for suppression of her chronic urinary tract infections. Nephrostomy tubes placed by Dr. Billy Martines MD in [facility]; Urology: Elias Ku MD; Nephrology: Bernabe Perry MD In the emergency room a CT of the pelvis showed a possible abscess in the posterior left flank with many surgical changes secondary to her cystectomy with ureteral diversion with ostomy in the right lower quadrant. Dr. Loyola from the general surgery department was contacted and plans for abscess drainage tomorrow. She was started on IV antibiotics with Zosyn and vancomycin and admitted to the hospitalist service for further care. 09/20/18: Eric has just returned from surgery where she had an incision and drainage of her left flank abscess. Dr. Loyola and I have discussed and great detail and her abscess was through the subcutaneous tissue and involved the upper layer of fascia but did not penetrate through the muscular layer. A large volume of pus was drained and a culture was obtained. Eric has been doing fairly well postoperatively with no nausea or vomiting. She remains somewhat lethargic and somnolent although she is easily aroused and answers questions appropriately. She admits that she has some pain in her back but it is better than it had been earlier. I have discussed the fact that the patient will need to be on broad- spectrum IV antibiotics until her culture results are available and an appropriate focused antibiotic therapy regiment can be initiated. 09/21/18: Eric is in good spirits today and she feels much better than she did yesterday when she was just waking up from surgery. She has been eating well without nausea or vomiting and she has not experienced any significant anterior or upper abdominal pain nor she had diarrhea or constipation. She continues to have pain localized to her posterior left lower flank area and seems to be improving since her incision and drainage. There is still a surgical dressing over the area and this is not disturbed for my evaluation. At the time my evaluation the culture and sensitivity reports were not yet available for inclusion in this dictation. Eric and her mother deny cough, chest pain, palpitations, dyspnea, wheezing, and fever or chills. Reason For Visit: LEFT LOWER BACK ABSCESS Physical Exam Vital Signs: Temp Pulse Resp BP Pulse Ox 98.4 F 81 16 110/63 100 09/21/18 12:00 09/21/18 12:00 09/21/18 12:00 09/21/18 12:00 09/21/18 12:00 Intake & Output 09/20/18 09/20/18 09/21/18 00:59 23:59 23:59 Intake Total 1772 Output Total Balance 1772 Weight 67.4 kg General appearance: PRESENT: no acute distress, cooperative Head exam: PRESENT: atraumatic, normocephalic Eye exam: PRESENT: conjunctiva pink, EOMI Ear exam: PRESENT: normal external ear exam. ABSENT: bleeding, drainage Mouth exam: PRESENT: moist, neck supple Neck exam: ABSENT: JVD, tracheal deviation Respiratory exam: PRESENT: clear to auscultation megan, symmetrical, unlabored Cardiovascular exam: PRESENT: RRR. ABSENT: clicks, gallop, rubs Vascular exam: PRESENT: normal capillary refill. ABSENT: pallor GI/Abdominal exam: PRESENT: normal bowel sounds, soft Rectal exam: PRESENT: deferred Extremities exam: ABSENT: joint swelling, pedal edema Musculoskeletal exam: PRESENT: full ROM, normal inspection Neurological exam: PRESENT: alert, oriented to person, oriented to place, oriented to time, oriented to situation, CN II-XII grossly intact. ABSENT: motor sensory deficit Psychiatric exam: PRESENT: appropriate affect, normal mood, other - Mild chronic intellectual impairment is noted. Skin exam: PRESENT: dry, warm, other - There is a left posterior flank abscess which is draining under her surgical dressing. I would not evaluated the actual wound due to the surgical dressings being present in my hesitancy to disturb them.. ABSENT: jaundice, rash, urticaria Results Laboratory Results: 09/21/18 09:55 09/21/18 09:55 09/21/18 09/21/18 09:55 09:55 WBC 2.9 L D RBC 3.26 L Hgb 9.7 L Hct 28.6 L MCV 88 MCH 29.6 MCHC 33.9 RDW 14.6 H Plt Count 203 Sodium 142.7 Potassium 4.3 Chloride 110 H Carbon Dioxide 23 Anion Gap 10 BUN 15 Creatinine 1.37 H Est GFR ( Amer) 54 L Est GFR (Non-Af Amer) 45 L Glucose 117 H Calcium 8.3 L Total Bilirubin 0.4 AST 12 L ALT 10 Alkaline Phosphatase 70 Total Protein 5.9 L Albumin 2.8 L Impressions: Renal Ultrasound 09/19/18 14:02 IMPRESSION: Multiple left renal cystic areas, largest measuring 5.2 cm. Mildly dilated right renal pelvis, 1.5 cm. Abdomen/Pelvis CT 09/19/18 16:20 IMPRESSION: 1. SURGICAL CHANGES OF CYSTECTOMY WITH URETERAL DIVERSION AND OSTOMY IN THE RIGHT LOWER QUADRANT. 2. 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 HYDRONEPHROSIS OF BOTH THE UPPER AND LOWER POLE OF THE KIDNEY. MARKED ABNORMAL APPEARANCE OF THE UPPER POLE OF THE KIDNEY. THIS COULD BE DUE TO CHRONIC OBSTRUCTION. CANNOT EXCLUDE INFECTION. NO PRIOR STUDIES SO CANNOT DETERMINE CHRONICITY OF THIS FINDING. 3. SEVERE HYDRONEPHROSIS OF THE LEFT KIDNEY WITH MARKED CORTICAL THINNING AND POOR FUNCTION WITH DELAYED EXCRETION. NO PRIOR STUDIES SO CANNOT DETERMINE CHRONICITY OF THIS FINDING. 4. FLUID COLLECTION IN THE SOFT TISSUES OF THE POSTERIOR LEFT FLANK. THIS IS PROBABLY RELATED TO PREVIOUS PERCUTANEOUS NEPHROSTOMY TUBE. UNKNOWN WHEN THE TUBE WAS PRESENT OR MAY HAVE BEEN REMOVED. THIS COULD BE FLUID SECONDARY TO RECENT PROCEDURE OR COULD BE ABSCESS. 5. NO OTHER SIGNIFICANT OR ACUTE FINDING IN THE ABDOMEN OR PELVIS ON CT SCAN WITH IV CONTRAST. Assessment & Plan - Diagnosis (1) Abscess or cellulitis of flank Is this a current diagnosis for this admission?: Yes Plan: Patient will be continued on broad-spectrum antibiotics utilizing Zosyn and vancomycin until such time as her blood/wound/urine culture and sensitivities enable a reasonable focused antibiotic therapy plan. Daily CBCs and metabolic profiles will be obtained. At the time of admission there is no evidence to support the diagnosis of sepsis. (2) History of nephrolithiasis Is this a current diagnosis for this admission?: Yes Plan: Patient has history of nephrolithiasis in the past. We will make a distinct effort at keeping her well-hydrated and follow her daily laboratory evaluations including a CBC metabolic profile and a magnesium level. (3) Chronic urinary tract infection, suppressed Is this a current diagnosis for this admission?: Yes Plan: Patient has a history of chronic urinary tract infection and has been on suppressive therapy utilizing Macrobid. This should be re-continued after she has finished her acute antibiotic therapy for her left flank abscess. (4) DVT prophylaxis Is this a current diagnosis for this admission?: Yes Plan: Patient will be continued on DVT prophylaxis utilizing SCDs and heparin. (5) Mental impairment Is this a current diagnosis for this admission?: Yes Plan: Patient has a history of mild chronic intellectual impairment. I will make every effort to make sure that she understands the details of her medical care and I will do my best to enable her to make decisions or at least participate in making decisions about her medical care with her mother. - Time Time Spent with patient: Less than 15 minutes Anticipated discharge: Home
[2018-09-21] MEDS ORDERED: SENNOSIDES 25 MG PO SCH (16:15)
[2018-09-21] MEDS: BISACODYL 5 MG TABEC PO SCH (18:06)
[2018-09-21] MEDS: ASCORBIC ACID 500 MG TABLET PO SCH (18:12)
[2018-09-21] MEDS ORDERED: (PENDING PHARMACY ID) (Potassium Citrate [Potassium Citrate Er] 10 MEQ) PO SCH (19:00)
--- NOTE | 2018-09-21 20:48 | PDOC CONSULTATION ---
Consultation Consult Date: 09/21/18 Attending physician:: YANI ALCANTAR Consult reason:: I was asked to see this patient for Dr. Perry due to a complicated urologic history and chronic kidney disease. History of Present Illness Admission Date/PCP: 09/19/18 20:37 ABBY AVILES MD History of Present Illness: ERIC WHITFIELD is a 33 year old female is a patient of Dr. Bernabe Perry who is her primary extractions technologist with history of chronic kidney disease stage III, chronic bilateral hydronephrosis, neurogenic bladder status post cystectomy and ureteral diversion and ostomy on the right lower quadrant, history of nephrolithiasis status post stent placement and removal, history of recurrent urinary tract infection, and mental retardation who presented to the emergency room 2 days ago because of significant left flank pain. The mother at bedside who is providing the history stated that starting last Friday patient complained of left flank pain in the morning. The mother indicated that the patient has high threshold for pain and does not usually complaint so she knows that this is pretty significant. She also noted that the contour of her left flank was abnormal and when she check it there was a knot which is red, hot and tender. She called the her urologist and spoke to Dr. Martines who was extractions technologist and they were advised to go to the emergency room. Initial workup in the emergency room included a CT scan of the abdomen and pelvis which showed a possible posterior abscess in the left flank area. Surgery care of Dr. Loyola was consulted. Patient subsequently underwent left flank abscess drainage yesterday by Dr. Watts. A purulent drainage was described. Since the left flank drainage of the abscess the patient's pain has almost resolved. When I saw the patient she does not complain of any pain at all. She is eating good and does not have any complaints. Mother confirms that she is making good amount of urine. Mother states that the patient always wants to empty her urostomy bag that she does not feel comfortable with too much urine in it. Mother also stated that patient has a recent MAG3 scan in June 2018 for which she was seen in follow-up by Dr. Lacy. According to Dr. Jones notes the MAG3 scan revealed that patient has a nonfunctioning left kidney. In terms of the kidney function her creatinine was 1.[address] Perry's notes. It was 0.87 in March 2018. Her creatinine on admission was 1.12 and now is 1.32. She continues to produce a good amount of urine. She is also being treated with IV antibiotics to include IV Zosyn and vancomycin. Her urine culture is growing gram-negative rods. Past Medical History EENT Medical History: Reports: Eyes - Congenital eyes problem, Other - Congenital decreased hearing, uses right hearing aids Neurological Medical History: Reports: Seizures - History of seizure when she was very young, she does not have any seizures, Other - Mental Retardation Renal/ Medical History: Reports: Chronic Kidney Disease Stage III, Nephrolithiasis, Other - Neurogenic bladder, status post cystectomy with ureteral diversion/ostomy Past Surgical History Past Surgical History: Reports: Cystectomy - With ureteral diversion and a cystostomy in the right lower quadrant area, Other - uretero-ileostomy Past Surgical Note: Back surgeries in 2007 with titanium rib placement, spinal lumbar fusion; eye surgeries and ear tube placement Social History Information Source: Parent Smoking Status: Never Smoker Frequency of Alcohol Use: None Hx Recreational Drug Use: No Hx Prescription Drug Abuse: No - Advance Directive Resuscitation Status: Full Code Family History Family History: Malignancy - Breast cancer in great grandmother and uterine cancer on great aunt Parental Family History Reviewed: Yes Children Family History Reviewed: NA Sibling(s) Family History Reviewed.: Yes Medication/Allergy Home Medications: Ascorbic Acid [Vitamin C 500 mg Tablet] 500 mg PO Q12@07,19 09/20/18 Bisacodyl [Dulcolax] 5 mg PO QPM@1900 09/20/18 Nitrofurantoin Macrocrystal [Macrodantin] 100 mg PO Q12@07,09/20/18 Potassium Citrate [Potassium Citrate ER] 10 meq PO Q12@07,19 09/20/18 Sennosides [Ex-Lax Maximum Relief] 25 mg PO Q48H 09/20/18 Allergies/Adverse Reactions: No Known Allergies Allergy (Verified 09/19/18 12:08) Review of Systems All systems: reviewed and no additional remarkable complaints except as stated Review of Systems: Constitutional: ABSENT: chills, fatigue, fever(s), headache(s), weight gain, weight loss Eyes: ABSENT: visual disturbances Ears: ABSENT: hearing changes Cardiovascular: ABSENT: chest pain, dyspnea on exertion, edema, orthropnea, palpitations Respiratory: ABSENT: cough, dyspnea, hemoptysis Gastrointestinal: ABSENT: abdominal pain, constipation, diarrhea, hematemesis, hematochezia, nausea, vomiting Genitourinary: ABSENT: dysuria, hematuria Musculoskeletal: ABSENT: joint swelling Integumentary: ABSENT: rash, wounds Neurological: ABSENT: abnormal gait, confusion, dizziness, focal weakness, numbness, syncope Psychiatric: ABSENT: anxiety, depression Endocrine: ABSENT: cold intolerance, heat intolerance, polydipsia, polyuria Hematologic/Lymphatic: ABSENT: easy bleeding, easy bruising, lymphadenopathy Physical Exam Vital Signs: Temp Pulse Resp BP Pulse Ox 98.2 F 76 15 125/71 97 09/21/18 20:00 09/21/18 20:00 09/21/18 20:00 09/21/18 20:00 09/21/18 20:00 Intake & Output 09/20/18 09/21/18 09/22/18 06:59 06:59 06:59 Intake Total 6392 2234 Output Total 3535 625 Balance 2857 1609 Weight 67.4 kg Exam: General appearance: No acute distress, cooperative, well-developed, well- nourished Head exam: PRESENT: atraumatic, normocephalic Eye exam: PRESENT: Conjunctiva Byers, EOMI, PERRLA. ABSENT: conjunctival injection, scleral icterus Mouth exam: PRESENT: moist, neck supple, tongue midline Neck exam: PRESENT: full ROM. ABSENT: carotid bruit, JVD, lymphadenopathy, thyromegaly Respiratory exam: PRESENT: clear to auscultation bilaterally. ABSENT: rales, rhonchi, stridor, wheezes Cardiovascular exam: PRESENT: RRR, +S1, +S2. ABSENT: systolic murmur Pulses: PRESENT: normal radial pulses, normal dorsalis pedis pulses GI/Abdominal exam: PRESENT: normal bowel sounds, soft. There is an incision packed with gauze on the left flank area were incision and drainage were done for the abscess ABSENT: guarding, mass, tenderness; ostomy with urostomy bag in the right lower quadrant area Rectal exam: Deferred Extremities exam: PRESENT: full ROM. ABSENT: calf tenderness, pedal edema Musculoskeletal: PRESENT: full ROM. ABSENT: deformity Neurological exam: PRESENT: alert, Awake, Oriented to person, Oriented to place , Oriented to time, reflexes normal, CN II-XII grossly intact. ABSENT: motor sensory deficit Psychiatric exam: PRESENT: appropriate affect, normal mood. ABSENT: homicidal ideation, suicidal ideation Skin exam: PRESENT: intact, dry, warm. ABSENT: rash Results Laboratory Results: 09/21/18 09:55 09/21/18 09:55 09/21/18 09/21/18 09:55 09:55 WBC 2.9 L D RBC 3.26 L Hgb 9.7 L Hct 28.6 L MCV 88 MCH 29.6 MCHC 33.9 RDW 14.6 H Plt Count 203 Sodium 142.7 Potassium 4.3 Chloride 110 H Carbon Dioxide 23 Anion Gap 10 BUN 15 Creatinine 1.37 H Est GFR ( Amer) 54 L Est GFR (Non-Af Amer) 45 L Glucose 117 H Calcium 8.3 L Total Bilirubin 0.4 AST 12 L ALT 10 Alkaline Phosphatase 70 Total Protein 5.9 L Albumin 2.8 L Impressions: Renal Ultrasound 09/19/18 14:02 IMPRESSION: Multiple left renal cystic areas, largest measuring 5.2 cm. Mildly dilated right renal pelvis, 1.5 cm. Abdomen/Pelvis CT 09/19/18 16:20 IMPRESSION: 1. SURGICAL CHANGES OF CYSTECTOMY WITH URETERAL DIVERSION AND OSTOMY IN THE RIGHT LOWER QUADRANT. 2. 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 HYDRONEPHROSIS OF BOTH THE UPPER AND LOWER POLE OF THE KIDNEY. MARKED ABNORMAL APPEARANCE OF THE UPPER POLE OF THE KIDNEY. THIS COULD BE DUE TO CHRONIC OBSTRUCTION. CANNOT EXCLUDE INFECTION. NO PRIOR STUDIES SO CANNOT DETERMINE CHRONICITY OF THIS FINDING. 3. SEVERE HYDRONEPHROSIS OF THE LEFT KIDNEY WITH MARKED CORTICAL THINNING AND POOR FUNCTION WITH DELAYED EXCRETION. NO PRIOR STUDIES SO CANNOT DETERMINE CHRONICITY OF THIS FINDING. 4. FLUID COLLECTION IN THE SOFT TISSUES OF THE POSTERIOR LEFT FLANK. THIS IS PROBABLY RELATED TO PREVIOUS PERCUTANEOUS NEPHROSTOMY TUBE. UNKNOWN WHEN THE TUBE WAS PRESENT OR MAY HAVE BEEN REMOVED. THIS COULD BE FLUID SECONDARY TO RECENT PROCEDURE OR COULD BE ABSCESS. 5. NO OTHER SIGNIFICANT OR ACUTE FINDING IN THE ABDOMEN OR PELVIS ON CT SCAN WITH IV CONTRAST. Assessment & Plan - Diagnosis (1) Abscess or cellulitis of flank Is this a current diagnosis for this admission?: Yes Plan: Status post incision and drainage and currently clinically improved in terms of the pain. Agree with broad-spectrum IV antibiotics with Zosyn and vancomycin. (2) Chronic kidney disease, stage 3 Is this a current diagnosis for this admission?: Yes Plan: There is very mild worsening of the kidney function from admission to this date which requires monitoring moving forward. Patient has left nonfunctioning kidney to the most recent MAG3 scan last June 2018. Patient has good urine output. Avoid nephrotoxic medications. Monitor vancomycin trough levels. Continue IV fluids. (3) Anemia in chronic kidney disease (CKD) Is this a current diagnosis for this admission?: Yes Plan: Mild worsening likely secondary to IV fluid hydration. (4) UTI (urinary tract infection) Qualifiers: Encounter type: initial encounter Is this a current diagnosis for this admission?: Yes Plan: Urine culture is growing gram-negative rods. If ever there is an active urinary tract infection the IV Zosyn, which would suffice at this time. It is noted that the patient does have recurrent and chronic urinary tract infection on prophylactic antibiotics. (5) History of creation of ostomy Is this a current diagnosis for this admission?: Yes Plan: Due to neurogenic bladder requiring cystectomy and subsequent cystectomy and ureteral diversion. (6) History of nephrolithiasis Is this a current diagnosis for this admission?: Yes - Notes Notes: Thank you very much for this consultation. We will follow the patient with you. - Time Time Spent: 50 to 70 Minutes
[2018-09-22] MEDS: PIPERACILLIN SODIUM/TAZOBACTAM 3.375 GM in NORMAL SALINE 100 ML IV SCH ×6 (00:16→17:11)
[2018-09-22] MEDS: HEPARIN SOD (PORCINE) 5,000 UNIT/ML 1 ML SYRINGE SUBCUT SCH ×3 (05:17→23:50)
[2018-09-22 05:49] LABS: ABSOLUTE EOSINOPHILS # (AUTO) 0.2 10^3/uL (0.0-0.6); ABSOLUTE LYMPHOCYTES (AUTO) 1.1 10^3/uL (0.5-4.7); ABSOLUTE MONOCYTES (AUTO) 0.4 10^3/uL (0.1-1.4); ABSOLUTE NEUT (AUTO) 1.6 10^3/uL (1.7-8.2); BASOPHILS % (AUTO) 1.3 % (0-2); EOSINOPHILS % (AUTO) 6.8 % (0-6); HEMATOCRIT 29.3 % (36.0-47.0); HEMOGLOBIN 9.9 g/dL (12.0-15.5); LYMPHOCYTES % (AUTO) 31.1 % (13-45); MEAN CORPUSCULAR HEMOGLOBIN 29.4 pg (27.0-33.4); MEAN CORPUSCULAR HGB CONC 33.7 g/dL (32.0-36.0); MEAN CORPUSCULAR VOLUME 87 fl (80-97); MONOCYTES % (AUTO) 12.8 % (3-13); PLATELET COUNT 203 10^3/uL (150-450); RED BLOOD COUNT 3.36 10^6/uL (3.72-5.28); RED CELL DISTRIBUTION WIDTH 14.3 % (11.5-14.0); TOTAL CELLS COUNTED % (AUTO) 100 %; WHITE BLOOD COUNT 3.4 10^3/uL (4.0-10.5)
[2018-09-22 06:06] LABS: ANION GAP 8 (5-19); BLOOD UREA NITROGEN 15 mg/dL (7-20); CALCIUM 8.2 mg/dL (8.4-10.2); CARBON DIOXIDE 23 mmol/L (22-30); CHLORIDE 111 mmol/L (98-107); CHOLESTEROL 92.39 mg/dL (0-200); GLUCOSE 90 mg/dL (75-110); POTASSIUM 4.2 mmol/L (3.6-5.0); TRIGLYCERIDES 68 mg/dL (<150)
[2018-09-22 06:18] LABS: DIRECT LDL 42 mg/dL (<100)
[2018-09-22] MEDS: ASCORBIC ACID 500 MG TABLET PO SCH ×2 (08:39→18:33)
[2018-09-22] MEDS: VANCOMYCIN HCL 1,250 MG in DEXTROSE 5%-WATER 250 ML IV SCH (10:23)
--- NOTE | 2018-09-22 13:22 | PDOC PROGRESS REPORT ---
Subjective Progress Note for:: 09/22/18 Subjective:: The patient is a 33-year-old female with a past medical history of congenital eye problems, congenital decreased hearing (utilizes hearing aids), seizures, developmental delay, neurogenic bladder, and chronic UTI who was admitted 2017 for an abscess to her left flank at the site of a previous ureter stent ( removed in June 2018). Patient was seen on morning rounds with her mother present. She was found sitting up to the chair on room air. She states that she is feeling much better today and that her pain is "okay." She asks to be discharged home and once she is informed that we need more time to allow the culture results to become available, she declines to answer further questions. Her mother reports that she is just frustrated and bored with being in the hospital and tells me that she has not had any fever, chills, difficulty breathing, abdominal pain, nausea, vomiting, dysuria, or hematuria. The mother expresses interest in home health nursing to assist with wound care following discharge. They have no other questions or concerns today. No concerns per nursing. Reason For Visit: LEFT LOWER BACK ABSCESS Physical Exam Vital Signs: Temp Pulse Resp BP Pulse Ox 98.9 F 83 16 112/68 100 09/22/18 11:42 09/22/18 11:42 09/22/18 11:42 09/22/18 11:42 09/22/18 11:42 Intake & Output 09/21/18 09/22/18 09/23/18 06:59 06:59 06:59 Intake Total 6392 2756 Output Total 3535 1275 Balance 2857 1481 Weight 67.4 kg 66.3 kg General appearance: PRESENT: no acute distress, hard of hearing - Rt sie hearing aide, well-developed, well-nourished Head exam: PRESENT: atraumatic, normocephalic Eye exam: PRESENT: conjunctiva pink, EOMI, PERRLA. ABSENT: scleral icterus Ear exam: PRESENT: normal external ear exam Mouth exam: PRESENT: moist, tongue midline Neck exam: ABSENT: carotid bruit, JVD, lymphadenopathy, thyromegaly Respiratory exam: PRESENT: clear to auscultation megan, symmetrical, unlabored. ABSENT: rales, rhonchi, wheezes Cardiovascular exam: PRESENT: RRR, +S1, +S2. ABSENT: diastolic murmur, rubs, systolic murmur Pulses: PRESENT: normal dorsalis pedis pul Vascular exam: PRESENT: normal capillary refill GI/Abdominal exam: PRESENT: normal bowel sounds, soft. ABSENT: distended, guarding, mass, organolmegaly, rebound, tenderness Rectal exam: PRESENT: deferred Extremities exam: PRESENT: full ROM. ABSENT: calf tenderness, clubbing, pedal edema Neurological exam: PRESENT: alert, awake, oriented to person, oriented to place , oriented to time, oriented to situation, CN II-XII grossly intact. ABSENT: motor sensory deficit Psychiatric exam: PRESENT: appropriate affect, normal mood. ABSENT: homicidal ideation, suicidal ideation Skin exam: PRESENT: dry, warm, other - Lt flank surgical I&D site with clean/ dry dressing in place. No surrounding erythema or edema.. ABSENT: cyanosis, rash Results Laboratory Results: 09/22/18 04:50 09/22/18 04:50 09/22/18 09/22/18 09/22/18 04:50 04:50 04:50 WBC 3.4 L RBC 3.36 L Hgb 9.9 L Hct 29.3 L MCV 87 MCH 29.4 MCHC 33.7 RDW 14.3 H Plt Count 203 Seg Neutrophils % 48.0 Lymphocytes % 31.1 Monocytes % 12.8 Eosinophils % 6.8 H Basophils % 1.3 Absolute Neutrophils 1.6 L Absolute Lymphocytes 1.1 Absolute Monocytes 0.4 Absolute Eosinophils 0.2 Absolute Basophils 0.0 Sodium 142.0 Potassium 4.2 Chloride 111 H Carbon Dioxide 23 Anion Gap 8 BUN 15 Creatinine 1.38 H Est GFR ( Amer) 54 L Est GFR (Non-Af Amer) 45 L Glucose 90 Calcium 8.2 L Magnesium 1.7 Triglycerides 68 Cholesterol 92.39 LDL Cholesterol Direct 42 VLDL Cholesterol 14.0 HDL Cholesterol 43 TSH 5.72 H Free T4 09/22/18 04:50 WBC RBC Hgb Hct MCV MCH MCHC RDW Plt Count Seg Neutrophils % Lymphocytes % Monocytes % Eosinophils % Basophils % Absolute Neutrophils Absolute Lymphocytes Absolute Monocytes Absolute Eosinophils Absolute Basophils Sodium Potassium Chloride Carbon Dioxide Anion Gap BUN Creatinine Est GFR ( Amer) Est GFR (Non-Af Amer) Glucose Calcium Magnesium Triglycerides Cholesterol LDL Cholesterol Direct VLDL Cholesterol HDL Cholesterol TSH Free T4 1.89 Impressions: Renal Ultrasound 09/19/18 14:02 IMPRESSION: Multiple left renal cystic areas, largest measuring 5.2 cm. Mildly dilated right renal pelvis, 1.5 cm. Abdomen/Pelvis CT 09/19/18 16:20 IMPRESSION: 1. SURGICAL CHANGES OF CYSTECTOMY WITH URETERAL DIVERSION AND OSTOMY IN THE RIGHT LOWER QUADRANT. 2. 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 HYDRONEPHROSIS OF BOTH THE UPPER AND LOWER POLE OF THE KIDNEY. MARKED ABNORMAL APPEARANCE OF THE UPPER POLE OF THE KIDNEY. THIS COULD BE DUE TO CHRONIC OBSTRUCTION. CANNOT EXCLUDE INFECTION. NO PRIOR STUDIES SO CANNOT DETERMINE CHRONICITY OF THIS FINDING. 3. SEVERE HYDRONEPHROSIS OF THE LEFT KIDNEY WITH MARKED CORTICAL THINNING AND POOR FUNCTION WITH DELAYED EXCRETION. NO PRIOR STUDIES SO CANNOT DETERMINE CHRONICITY OF THIS FINDING. 4. FLUID COLLECTION IN THE SOFT TISSUES OF THE POSTERIOR LEFT FLANK. THIS IS PROBABLY RELATED TO PREVIOUS PERCUTANEOUS NEPHROSTOMY TUBE. UNKNOWN WHEN THE TUBE WAS PRESENT OR MAY HAVE BEEN REMOVED. THIS COULD BE FLUID SECONDARY TO RECENT PROCEDURE OR COULD BE ABSCESS. 5. NO OTHER SIGNIFICANT OR ACUTE FINDING IN THE ABDOMEN OR PELVIS ON CT SCAN WITH IV CONTRAST. Assessment & Plan - Diagnosis (1) Abscess or cellulitis of flank Is this a current diagnosis for this admission?: Yes Plan: Now s/p surgical I&D by Dr. Loyola on 09/20/2018. Blood cultures have no growth at 48 hours. Wound culture with gram-positive cocci in chains. The patient has been admitted to the medical floor. She is provided empiric IV Zosyn and vancomycin; will narrow as cultures result. Surgery was consulted; recommends follow-up in the advanced wound care clinic 1 week after discharge. She currently has 1/4 inch packing (x1 bottle) in place. Communication order for wound care at time of discharge states: Upon discharge remove packing from wound- if draining pack wound with 1/4 inch iodaform ( 1/2 bottle) if not draining just put dressing over. (2) Chronic kidney disease, stage 3 Is this a current diagnosis for this admission?: Yes Plan: Mildly worsening kidney function from time of admission; creatinine 1.27--> 1.38 Continue maintenance IV fluids. Avoid nephrotoxic medications as able. Pharmacy to dose vancomycin. Nephrology has been consulted; appreciate their assistance. Monitor daily chemistries. (3) Chronic urinary tract infection, suppressed Is this a current diagnosis for this admission?: Yes Plan: The patient has a history of chronic urinary tract infections and has been on suppressive therapy utilizing Macrobid. She is currently treated with IV vancomycin and Zosyn; Macrobid is held at this time. Recommend resumption of Macrobid upon completion of current course of antibiotic therapy. Follow-up with outpatient cheese cook and urologist as scheduled. (4) Anemia in chronic kidney disease (CKD) Qualifiers: Chronic kidney disease stage: stage 3 (moderate) Qualified Code(s): N18.3 - Chronic kidney disease, stage 3 (moderate); D63.1 - Anemia in chronic kidney disease; D63.1 - Anemia in chronic kidney disease Is this a current diagnosis for this admission?: Yes Plan: Hemoglobin trended down from 12-9.7; now up to 9.9. This likely due to hemodilution with IV fluids. No indications of active bleeding at this time. We will place patient on multivitamin with iron. Nephrology has been consulted. Monitor daily CBC and chemistry. (5) Mental impairment Is this a current diagnosis for this admission?: Yes - Time Time Spent with patient: 15-24 minutes Medications reviewed and adjusted accordingly: Yes Anticipated discharge: Home Within: within 48 hours - Pending wound culture results.
[2018-09-22] MEDS ORDERED: LIDOCAINE 1% INJ (10 MG/ML) 10 ML MDV INJ ONE (16:00)
[2018-09-22] MEDS: BISACODYL 5 MG TABEC PO SCH (18:33)
[2018-09-22] MEDS: AMOXICILLIN TR/POT CLAVULANATE 500-125 MG TAB PO SCH (23:50)
[2018-09-23] MEDS: PIPERACILLIN SODIUM/TAZOBACTAM 3.375 GM in NORMAL SALINE 100 ML IV SCH ×2 (00:25→06:51)
[2018-09-23 06:40] LABS: ABSOLUTE BASOPHILS # (AUTO) 0.1 10^3/uL (0.0-0.2); ABSOLUTE EOSINOPHILS # (AUTO) 0.2 10^3/uL (0.0-0.6); ABSOLUTE LYMPHOCYTES (AUTO) 0.8 10^3/uL (0.5-4.7); ABSOLUTE MONOCYTES (AUTO) 0.4 10^3/uL (0.1-1.4); ABSOLUTE NEUT (AUTO) 1.3 10^3/uL (1.7-8.2); EOSINOPHILS % (AUTO) 6.9 % (0-6); HEMATOCRIT 31.9 % (36.0-47.0); HEMOGLOBIN 10.7 g/dL (12.0-15.5); LYMPHOCYTES % (AUTO) 29.4 % (13-45); MEAN CORPUSCULAR HGB CONC 33.4 g/dL (32.0-36.0); MEAN CORPUSCULAR VOLUME 87 fl (80-97); MONOCYTES % (AUTO) 14.4 % (3-13); PLATELET COUNT 222 10^3/uL (150-450); RED BLOOD COUNT 3.68 10^6/uL (3.72-5.28); RED CELL DISTRIBUTION WIDTH 14.4 % (11.5-14.0); SEGMENTED NEUTROPHILS % (AUTO) 47.3 % (42-78); TOTAL CELLS COUNTED % (AUTO) 100 %; WHITE BLOOD COUNT 2.8 10^3/uL (4.0-10.5)
[2018-09-23] MEDS: HEPARIN SOD (PORCINE) 5,000 UNIT/ML 1 ML SYRINGE SUBCUT SCH ×2 (06:51→14:46)
[2018-09-23] MEDS: AMOXICILLIN TR/POT CLAVULANATE 500-125 MG TAB PO SCH ×2 (06:51→15:08)
[2018-09-23 06:59] LABS: ANION GAP 10 (5-19); BLOOD UREA NITROGEN 16 mg/dL (7-20); CALCIUM 8.7 mg/dL (8.4-10.2); CARBON DIOXIDE 24 mmol/L (22-30); CHLORIDE 111 mmol/L (98-107); GLUCOSE 94 mg/dL (75-110); POTASSIUM 4.2 mmol/L (3.6-5.0); SODIUM 144.7 mmol/L (137-145)
[2018-09-23] MEDS: ASCORBIC ACID 500 MG TABLET PO SCH (08:08)
[2018-09-23] MEDS ORDERED: MULTIVITAMINS W-IRON TABLET, CHEWABLE PO SCH (10:00)
[2018-09-23 15:23] VITALS: BP 112/64
--- NOTE | 2018-09-24 12:08 | PDOC DISCHARGE SUMMARY ---
General - Admit/Disc Date/PCP Admission Date/Primary Care Provider: 09/19/18 20:37 ABBY AVILES MD Discharge Date: 09/23/18 - Discharge Diagnosis (1) Abscess or cellulitis of flank Is this a current diagnosis for this admission?: Yes Summary: The patient was admitted with cellulitis and abscess to her left flank and underwent surgical I&D by Dr. Loyola on 09/20/18. Blood cultures have no growth at 4 days. Wound culture was positive for pansensitive Streptococcus sanguinous and Peptostreptococcus species. At time of admission, the patient was empirically placed on IV vancomycin and Zosyn. She has been transitioned to p.o. Augmentin for an additional 10 days of therapy. Her wound continues to have a slight amount of discharge and so continues to be packed with 1/4 inch iodoform ribbon covered with a gauze dressing. Arrangements have been made for home health nursing to assist with providing wound care and the patient is to follow-up with the [facility] within 1 week. (2) Chronic kidney disease, stage 3 Is this a current diagnosis for this admission?: Yes Summary: The patient's creatinine worsened slightly while on IV vancomycin but is now improving. Cr 1.12--> 1.27--> 1.37--> 1.38--> 1.20 Nephrology was consulted and recommended close monitoring of vancomycin troughs and continued IV fluids. (3) Chronic urinary tract infection, suppressed Is this a current diagnosis for this admission?: Yes Summary: The patient has a history of chronic urinary tract infection and has been on suppressive therapy utilizing Macrobid. Her Macrobid was held while inpatient and she was placed on IV vancomycin and Zosyn for treatment of her cellulitis. She has since been transitioned to p.o. Augmentin based on wound culture sensitivities. She is instructed to resume her Macrobid upon completion of the Augmentin therapy. (4) Anemia in chronic kidney disease (CKD) Is this a current diagnosis for this admission?: Yes Summary: The patient's hemoglobin trended down from 12 on admission to 9.7; likely secondary to hemodilution while receiving IV fluids. On day of discharge, her hemoglobin had increased to 10.7. She had no indications of active bleeding. She is recommended to continue a multivitamin with iron as an outpatient. (5) Mental impairment Is this a current diagnosis for this admission?: Yes - Additional Information Resuscitation Status: Full Code Discharge Diet: Regular Discharge Activity: Activity As Tolerated Prescriptions: Amox Tr/Potassium Clavulanate [Augmentin "500" Tablet] 1 tab PO Q8 #21 tablet Multivitamins W-Iron [Flintstones Chewable Multivit W/Fe Tab] 2 tab PO DAILY # 60 tab.chew Oxycodone HCl/Acetaminophen [Percocet 5-325 mg Tablet] 1 tab PO Q6HP PRN #12 tablet PRN Reason: Severe Pain Home Medications: Ascorbic Acid [Vitamin C 500 mg Tablet] 500 mg PO Q12@07,19 09/20/18 Bisacodyl [Dulcolax] 5 mg PO QPM@1900 09/20/18 Nitrofurantoin Macrocrystal [Macrodantin] 100 mg PO Q12@07,09/20/18 Potassium Citrate [Potassium Citrate ER] 10 meq PO Q12@,09/20/18 Sennosides [Ex-Lax Maximum Strength] 25 mg PO Q48H 09/20/18 Acetaminophen [Tylenol 325 mg Tablet] 650 mg PO Q4HP PRN tablet 09/23/18 Amox Tr/Potassium Clavulanate [Augmentin "500" Tablet] 1 tab PO Q8 #21 tablet 09/23/18 Multivitamins W-Iron [Flintstones Chewable Multivit W/Fe Tab] 2 tab PO DAILY # 60 tab.chew 09/23/18 Oxycodone HCl/Acetaminophen [Percocet 5-325 mg Tablet] 1 tab PO Q6HP PRN #12 tablet 09/23/18 History of Present Illness History of Present Illness: Per H&P by Dr. Ly: ERCI WHITFIELD is a 33 year old female with history of mental retardation, neurogenic bladder with cystectomy and ureteral diversion plus ostomy in right lower quadrant, comes to the emergency department as she was complaining of left flank pain for 1 day. Her mother is at the bedside and tells me that the patient usually does no complaint of pain but last night she mentioned to her mother who thought it was because she was standing for too long. Today in the morning mother went to see that area as she was a still complaining of severe pain up to 9/10 intensity and found her skin erythematous , swollen, very tender to palpation, she did not notice any secretion. Mother tells me that she was a little bit lethargic, hot and sweaty, she did not take her temperature, denies chills, nausea, vomiting, dizziness, lightheadedness, hematuria or purulent secretions. Patient has urostomy bag with clear urine. Her mother tells me that the last May patient was found with a left kidney stone, as patient does not have that they could not place a stent, usually is placed to nephrostomy tubes one in the left flank and second 1 going to the urostomy bag. 10 days later after nephrostomy tubes placed the one that was going to the urostomy bag was removed and the second 1 was removed in June. Mother tells me that the skin infection is exactly in the area where the left flank nephrostomy tube was placed. On chronic nitrofurantoin 100 mg twice a day initiated by her infectious diseases doctor. CT of the pelvis shows a possible abscess in the posterior left flank with many surgical changes secondary to her cystectomy with ureteral diversion with ostomy in the right lower quadrant. Dr. Loyola from the general surgery department was contacted from the emergency department, he had a look at the CT scan and plan for abscess drainage tomorrow. Given 1 dose of IV Zosyn. Nephrostomy tubes placed by Dr. Billy Martines MD in [facility] Elias Ku MD Nephrology Bernabe Perry MD Physical Exam Vital Signs: Temp Pulse Resp BP Pulse Ox 97.2 F 79 16 112/64 100 09/23/18 15:19 09/23/18 15:19 09/23/18 15:19 09/23/18 15:19 09/23/18 15:19 Intake & Output 09/23/18 09/24/18 09/25/18 06:59 06:59 06:59 Intake Total 1067 Output Total 1000 Balance 67 Weight 66.3 kg General appearance: PRESENT: no acute distress, well-developed, well-nourished Head exam: PRESENT: atraumatic, normocephalic Eye exam: PRESENT: conjunctiva pink, EOMI, PERRLA. ABSENT: scleral icterus Ear exam: PRESENT: normal external ear exam Mouth exam: PRESENT: moist, tongue midline Neck exam: ABSENT: carotid bruit, JVD, lymphadenopathy, thyromegaly Respiratory exam: PRESENT: clear to auscultation megan, symmetrical, unlabored. ABSENT: rales, rhonchi, wheezes Cardiovascular exam: PRESENT: RRR, +S1, +S2. ABSENT: diastolic murmur, rubs, systolic murmur Pulses: PRESENT: normal dorsalis pedis pul Vascular exam: PRESENT: normal capillary refill GI/Abdominal exam: PRESENT: normal bowel sounds, soft. ABSENT: distended, guarding, mass, organolmegaly, rebound, tenderness Rectal exam: PRESENT: deferred Extremities exam: PRESENT: full ROM. ABSENT: calf tenderness, clubbing, pedal edema Neurological exam: PRESENT: alert, awake, oriented to person, oriented to place , oriented to time, oriented to situation, CN II-XII grossly intact. ABSENT: motor sensory deficit Psychiatric exam: PRESENT: appropriate affect, normal mood. ABSENT: homicidal ideation, suicidal ideation Skin exam: PRESENT: dry, warm, other - Surgical incision to left flank with packing in place over lead with dry gauze. No surrounding erythema or edema.. ABSENT: cyanosis, rash Results Laboratory Results: 09/23/18 06:17 09/23/18 06:17 Impressions: Renal Ultrasound 09/19/18 14:02 IMPRESSION: Multiple left renal cystic areas, largest measuring 5.2 cm. Mildly dilated right renal pelvis, 1.5 cm. Abdomen/Pelvis CT 09/19/18 16:20 IMPRESSION: 1. SURGICAL CHANGES OF CYSTECTOMY WITH URETERAL DIVERSION AND OSTOMY IN THE RIGHT LOWER QUADRANT. 2. 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 HYDRONEPHROSIS OF BOTH THE UPPER AND LOWER POLE OF THE KIDNEY. MARKED ABNORMAL APPEARANCE OF THE UPPER POLE OF THE KIDNEY. THIS COULD BE DUE TO CHRONIC OBSTRUCTION. CANNOT EXCLUDE INFECTION. NO PRIOR STUDIES SO CANNOT DETERMINE CHRONICITY OF THIS FINDING. 3. SEVERE HYDRONEPHROSIS OF THE LEFT KIDNEY WITH MARKED CORTICAL THINNING AND POOR FUNCTION WITH DELAYED EXCRETION. NO PRIOR STUDIES SO CANNOT DETERMINE CHRONICITY OF THIS FINDING. 4. FLUID COLLECTION IN THE SOFT TISSUES OF THE POSTERIOR LEFT FLANK. THIS IS PROBABLY RELATED TO PREVIOUS PERCUTANEOUS NEPHROSTOMY TUBE. UNKNOWN WHEN THE TUBE WAS PRESENT OR MAY HAVE BEEN REMOVED. THIS COULD BE FLUID SECONDARY TO RECENT PROCEDURE OR COULD BE ABSCESS. 5. NO OTHER SIGNIFICANT OR ACUTE FINDING IN THE ABDOMEN OR PELVIS ON CT SCAN WITH IV CONTRAST. Qualifiers - * PATIENT BEING DISCHARGED WITH ANY OF THE FOLLOWING DIAGNOSIS: No Plan Discharge Plan: Follow-up with primary care provider within 1 week. Follow-up with the [facility] as scheduled. Return to the emergency department as needed. Time Spent: Less than 30 Minutes
== END 2018-09-23 16:05 | disposition home or self-care (01) | DRG 580 ==
LOC: ER 11:35 → EH 20:37 → 4N 21:56
PROVIDERS: ADMIT Internal Medicine; ATTEND Internal Medicine
PROC: 0J980ZZ Drainage of Abdomen Subcutaneous Tissue and Fascia, Open Approach (ICD-10-PCS; principal; 2018-09-20 08:00)
DX: L02.211 Cutaneous abscess of abdominal wall (principal); N13.30 Unspecified hydronephrosis; N39.0 Urinary tract infection, site not specified; N18.3 Chronic kidney disease, stage 3 (moderate); D63.1 Anemia in chronic kidney disease; F79 Unspecified intellectual disabilities; N31.9 Neuromuscular dysfunction of bladder, unspecified; Z87.442 Personal history of urinary calculi; Z93.6 Other artificial openings of urinary tract status
CPT/HCPCS: 36415; 400; 74177; 76775; 80048; 80053; 80061; 81001; 81025; 83605; 83735; 84439; 84443; 85025; 85027; 85610; 85730; 87040; 87070; 87075; 87077; 87086; 87088; 87186; 87205; 96365; 96375; 99285; A6266; J1644; J2250; J2270; J2543; J2704; J3010; J3370; J3490; J7030; J7060

== ENCOUNTER → 2018-09-30 | Outpatient (CLI) | payer OTHER, MEDICAID ==
[2018-09-30 12:06] LABS: HEMATOCRIT 34.9 % (36.0-47.0); HEMOGLOBIN 11.5 g/dL (12.0-15.5); MEAN CORPUSCULAR HEMOGLOBIN 28.9 pg (27.0-33.4); MEAN CORPUSCULAR VOLUME 87 fl (80-97); PLATELET COUNT 216 10^3/uL (150-450); RED CELL DISTRIBUTION WIDTH 14.5 % (11.5-14.0); WHITE BLOOD COUNT 2.6 10^3/uL (4.0-10.5)
[2018-09-30 12:23] LABS: ANION GAP 11 (5-19); BLOOD UREA NITROGEN 19 mg/dL (7-20); CALCIUM 8.8 mg/dL (8.4-10.2); CARBON DIOXIDE 26 mmol/L (22-30); CHLORIDE 104 mmol/L (98-107); GLUCOSE 80 mg/dL (75-110); POTASSIUM 5.2 mmol/L (3.6-5.0); SODIUM 141.4 mmol/L (137-145)
== END ==
LOC: OD 10:55
PROVIDERS: ATTEND Internal Medicine Nephrology
DX: N13.2 Hydronephrosis with renal and ureteral calculous obstruction (principal)
CPT/HCPCS: 36415; 80048; 85027

== ENCOUNTER 2018-11-02 11:16 | Day surgery (SDC) | payer OTHER, MEDICAID ==
--- NOTE | 2018-10-30 13:09 | RADIOLOGY REPORT (SQ) ---
EXAM DESCRIPTION: CHEST PA/LATERAL COMPLETED DATE/TIME: 10/30/2018 12:46 pm REASON FOR STUDY: PRE-OP COMPARISON: None. EXAM PARAMETERS: NUMBER OF VIEWS: two views TECHNIQUE: Digital Frontal and Lateral radiographic views of the chest acquired. RADIATION DOSE: NA LIMITATIONS: none FINDINGS: LUNGS AND PLEURA: No opacities, masses or pneumothorax. No pleural effusion. MEDIASTINUM AND HILAR STRUCTURES: No masses or contour abnormalities. HEART AND VASCULAR STRUCTURES: Heart normal size. No evidence for failure. BONES: No acute findings. HARDWARE: None in the chest. OTHER: No other significant finding. IMPRESSION: NO SIGNIFICANT RADIOGRAPHIC FINDING IN THE CHEST. TECHNICAL DOCUMENTATION: JOB ID: [id number] [employer]- All Rights Reserved Reading location - IP/workstation name: [email or web address]
[2018-10-30 13:30] LABS: HEMATOCRIT 37.7 % (36.0-47.0); HEMOGLOBIN 12.8 g/dL (12.0-15.5); MEAN CORPUSCULAR HEMOGLOBIN 30.2 pg (27.0-33.4); MEAN CORPUSCULAR VOLUME 89 fl (80-97); PLATELET COUNT 151 10^3/uL (150-450); RED BLOOD COUNT 4.25 10^6/uL (3.72-5.28); RED CELL DISTRIBUTION WIDTH 15.6 % (11.5-14.0); WHITE BLOOD COUNT 3.5 10^3/uL (4.0-10.5)
[2018-10-30 15:42] LABS: ANION GAP 8 (5-19); BLOOD UREA NITROGEN 34 mg/dL (7-20); CALCIUM 8.8 mg/dL (8.4-10.2); CARBON DIOXIDE 27 mmol/L (22-30); CHLORIDE 107 mmol/L (98-107); GLUCOSE 91 mg/dL (75-110); POTASSIUM 4.3 mmol/L (3.6-5.0); SODIUM 141.5 mmol/L (137-145)
[~2018-11-02 11:16] MED LIST: CEFAZOLIN 1 GM/D5W RTU 1 GM/50 ML RTUPB IV PRN; DEXTROSE 5%-1/2 NORMAL SALINE 1,000 ML IV PRN; DIAZEPAM 5 MG TABLET PO PRN; LACTATED RINGERS 1000 ML IV PRN; LIDOCAINE 0.5% INJ-PF (5 MG/ML) 50 ML SDV SUBCUT PRN; OXYCODONE-ACETAMINOPHEN 5-325 MG TABLET PO PRN
[2018-11-02] MEDS ORDERED: BACITRACIN INJ 50,000 UNIT VIAL ONE (11:18)
[2018-11-02] MEDS ORDERED: LIDOCAINE 0.5% INJ-PF (5 MG/ML) 50 ML SDV ONE (11:18)
[2018-11-02] MEDS ORDERED: BUPIVACAINE HCL 0.25 % INJ/PF (2.5 MG/1 ML) 30 ML VIAL ONE (11:18)
[2018-11-02] MEDS ORDERED: FENTANYL CITRATE INJ/PF 100 MCG/2 ML AMPUL ONE (11:55)
[2018-11-02] MEDS ORDERED: MIDAZOLAM 2 MG/2 ML INJ ONE (11:55)
[2018-11-02] MEDS ORDERED: PROPOFOL INJ 200 MG/20 ML VIAL IV ONE (11:56)
[2018-11-02] MEDS ORDERED: BUPIVACAINE HCL 0.25 % INJ/PF (2.5 MG/1 ML) 30 ML VIAL INJ ONE (12:36)
[2018-11-02] MEDS ORDERED: LIDOCAINE 0.5% INJ-PF (5 MG/ML) 50 ML SDV INJ ONE (12:38)
[2018-11-02] MEDS ORDERED: BACITRACIN INJ 50,000 UNIT VIAL IR ONE (12:41)
[2018-11-02] MEDS ORDERED: CEFAZOLIN 1 GM/D5W RTU 1 GM/50 ML RTUPB IV ONE (13:56)
--- NOTE | 2018-11-02 13:57 | PDOC H&P ---
General Chief Complaint: This patient presents with a request for Port-A-Cath insertion . She has numerous hospitalizations for kidney stones and for IV access for fluid. Her peripheral veins are extinguished. - Current Medications/Allergies Home Medications: Ascorbic Acid [Vitamin C 500 mg Tablet] 500 mg PO Q12@07,19 09/20/18 Nitrofurantoin Macrocrystal [Macrodantin] 100 mg PO BID 09/20/18 Potassium Citrate [Potassium Citrate ER] 10 meq PO BID 09/20/18 Sennosides [Ex-Lax Maximum Strength] 25 mg PO Q48H 09/20/18 Allergies/Adverse Reactions: No Known Allergies Allergy (Verified 10/30/18 09:17) Past Medical History Cardiac Medical History: Denies: Coronary Artery Disease, Myocardial Infarction, Hypertension Pulmonary Medical History: Denies: Asthma, Bronchitis, Chronic Obstructive Pulmonary Disease (COPD), Pneumonia Neurological Medical History: Reports: Seizures - Hx of seizure when very young , she does not have any seizures Musculoskeltal Medical History: Denies: Arthritis Hematology: Reports: Anemia Past Surgical History Past Surgical History: Reports: Other - uretero-ileostomy Family History Family History: None Parental Family History Reviewed: No Children Family History Reviewed: No Sibling(s) Family History Reviewed.: No Social History Smoking Status: Never Smoker Frequency of Alcohol Use: None Hx Recreational Drug Use: No Hx Prescription Drug Abuse: No Physical Exam Vital Signs: Temp Pulse Resp BP Pulse Ox 98.5 F 60 16 116/76 100 11/02/18 12:00 11/02/18 12:00 11/02/18 12:00 11/02/18 12:00 11/02/18 12:00 Intake & Output 11/01/18 11/02/18 11/03/18 06:59 06:59 06:59 Intake Total 0 Balance 0 Weight 63.5 kg Additional comments: Constitutional: Well-developed well-nourished lady. No apparent acute distress. Eyes: Mucous membranes pink and moist, pupils equal and reactive to light. Conjunctiva normal. Cornea normal. ENT: Hearing grossly normal. External pinna normal to inspection. Teeth intact. Tongue normal to inspection. Cardiac: Heart sounds 1 and 2 normal. Respiratory breath sounds are present bilaterally, normal. Normal respiratory effort. Psychiatric: Judgment, memory, insight seem questionable. Mood is pleasant and appropriate. Extremities: Upper extremities show normal range of movement. Pulses present noted to the radial arteries. Capillary refill normal. No cyanosis noted. No muscle wasting noted. Impression/Plan Plan: In this patient who requires frequent hospitalizations for dehydration and for renal stone who has almost extinction of the peripheral access, insertion of a Port-A-Cath seems reasonable in order to make her frequent hospitalizations more tolerable. I discussed this with her mother in particular at some length. She understands the risks which include infection, bleeding, heart, lung complications, injury to other structures. She wishes to proceed and we will plan to put in a single lumen Port-A-Cath.
[2018-11-02] MEDS ORDERED: DIPHENHYDRAMINE HCL 50 MG/ML VIAL IV PRN (14:09)
[2018-11-02] MEDS ORDERED: FENTANYL CITRATE INJ/PF 100 MCG/2 ML AMPUL IV PRN ×3 (14:09)
[2018-11-02] MEDS ORDERED: MEPERIDINE HCL/PF INJ 25 MG/1 ML DISP.SYRIN IV PRN (14:09)
[2018-11-02] MEDS ORDERED: PROMETHAZINE HCL INJ 25 MG/1 ML VIAL IV PRN ×2 (14:09)
--- NOTE | 2018-11-02 15:43 | Discharge Summary ---
Discharge Summary (SDC) - Discharge Final Diagnosis: #1 history of frequent urinary tract infection. 2. History of frequent hospitalizations for dehydration. 3. Mental retardation. 4. Kidney stones. Date of Surgery: 11/02/18 Discharge Date: 11/02/18 Condition: Fair Treatment or Instructions: Discharge home [after recovery per ASU criteria]. Diet,as tolerated, when fully awake advance as tolerated. Activities within moderation encouraged. Follow up in my office by appointment in about [1 week]. Call for appointment. Leave wounds [covered], [keep clean and dry, until office visit in 1 week]. Hold of on school/work [until evaluation in office]. Meds per med rec. Tylenol with codeine. May shower [in 48 hrs], [try to keep operated area as dry as possible]. Prescriptions: Acetaminophen with Codeine [Acetaminophen-Cod #2 Tablet] 1 each PO Q4 #10 tablet Referrals: ABBY AVILES MD [Primary Care Provider] - Discharge Diet: As Tolerated Respiratory Treatments at Home: Deep Breathing/Coughing Discharge Activity: Activity As Tolerated Report the Following to Your Physician Immediately: Shortness of Breath, Unusual Bleeding
--- NOTE | 2018-11-02 15:45 | Operative Report ---
Operative Report DATE OF SURGERY: 11/02/18 PREOPERATIVE DIAGNOSIS: #1 history of frequent urinary tract infection. 2. History of frequent hospitalizations for dehydration. 3. Mental retardation. 4. Kidney stones. POSTOPERATIVE DIAGNOSIS: #1 history of frequent urinary tract infection. 2. History of frequent hospitalizations for dehydration. 3. Mental retardation. 4. Kidney stones. OPERATION: 1. Ultrasound evaluation of the right internal jugular vein. 2. Insertion of single-lumen Port-A-Cath via real-time access in the right internal jugular vein. 3. Angiogram and interpretation. SURGEON: NESSA BURROWS DRAW BENCH OPERATOR: None. ANESTHESIA: LMAC TISSUE REMOVED OR ALTERED: Not applicable. COMPLICATIONS: None. ESTIMATED BLOOD LOSS: 10 mL. INTRAOPERATIVE FINDINGS: Satisfactory right internal jugular vein, estimated to be about 1.5 cm in diameter. Satisfactory position the catheter just down in the right atrium. Easy egress of blood and ingress of heparinized solution. Satisfactory flow of contrast through the catheter, right atrium and ventricle. PROCEDURE: After obtaining informed consent, the patient was taken to the [operating room] and positioned supine. The [right] neck and chest were prepared with chlorhexidine and draped out with sterile linen. After the " universal timeout ", in which it was verified that the patient continued to receive antibiotic, the procedure commenced. A steriley sheathed ultrasound probe was used to evaluate the [right] internal jugular vein. Local anesthesia was infiltrated adjacent to the probe. Access into the [right] internal jugular vein was obtained using a micropuncture needle, followed by micropuncture wire and then a micropuncture catheter. This was followed by introduction of a 0.035 guidewire the tip of which was placed down into the inferior vena cava . The port sites was marked , locally anesthetized and incision made. Dissection now proceeded to the deep subcutaneous subcutaneous tissues so that a pocket for the port was made. Meticulous hemostasis was secured and the catheter was tunneled between the 2 incisions. Proximally, the catheter was now positioned using a peel-away sheath. Distally the catheter was tailored to an appropriate length and then mated to the port using the contained fixating device. The port was now placed in the pocket and the catheter optimally positioned. The port was accessed with a Blanco needle and an angiogram done under digital subtraction. The findings as dictated. With adequate and satisfactory positioning, both lumens of the chamber were irrigated with heparinized solution. The wounds were now closed using interrupted 3-0 PDS to the subcutaneous tissues and a continuous subcuticular suture of 4-0 Monocryl to the skin. These are reinforced with Steri-Strips over benzoin and then dressings applied. Time: 0.6 minute. Dose: 7.09 Renetta very Contrast: 4 Mls. Isovue 300. Copies of the dictated operative report for Dr. Nessa Solis MD.
--- NOTE | 2018-11-02 15:59 | RADIOLOGY REPORT (SQ) ---
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 FLUOROSCOPY TIME: 0.6 minutes. 10 images saved to PACS. TECHNIQUE: Intra-operative images acquired during surgical procedure to evaluate progress. NUMBER OF IMAGES: 10 images. LIMITATIONS: None. FINDINGS: Images of the chest acquired during catheter placement. IMPRESSION: IMAGE(S) OBTAINED DURING PROCEDURE. COMMENT: Quality ID [id number]: Final reports for procedures using fluoroscopy that document radiation exp osure indices, or exposure time and number of fluorographic images (if radiation exposure indices are not available) Please consult full operative report of the attending physician for description of the procedure. TECHNICAL DOCUMENTATION: JOB ID: [id number] [employer]- All Rights Reserved Reading location - IP/workstation name: [email or web address]
--- NOTE | 2018-11-02 16:15 | RADIOLOGY REPORT (SQ) ---
EXAM DESCRIPTION: CHEST SINGLE VIEW COMPLETED DATE/TIME: 11/02/2018 4:06 pm REASON FOR STUDY: POST OP PORT-A-CATH COMPARISON: 10/30/2018. EXAM PARAMETERS: NUMBER OF VIEWS: One view. TECHNIQUE: Single frontal radiographic view of the chest acquired. RADIATION DOSE: NA LIMITATIONS: None. FINDINGS: LUNGS AND PLEURA: No opacities, masses or pneumothorax. No pleural effusion. MEDIASTINUM AND HILAR STRUCTURES: No masses. Contour normal. HEART AND VASCULAR STRUCTURES: Heart normal in size. Normal vasculature. BONES: No acute findings. HARDWARE: Vascular port with the tip at the level of the superior vena cava. OTHER: No other significant finding. IMPRESSION: VASCULAR PORT IN PLACE. NO PNEUMOTHORAX. NO ACUTE RADIOGRAPHIC FINDING IN THE CHEST. TECHNICAL DOCUMENTATION: JOB ID: [id number] [employer]- All Rights Reserved Reading location - IP/workstation name: [email or web address]
[2018-11-02] MEDS ORDERED: ACETAMINOPHEN WITH CODEINE #3 TABLET ONE (16:31)
[2018-11-02 17:42] VITALS: BP 123/84
== END 2018-11-02 17:30 | disposition home or self-care (01) ==
LOC: OROUT 11:16
PROVIDERS: ATTEND Surgery
DX: Q63.9 Congenital malformation of kidney, unspecified (principal); Q60.0 Renal agenesis, unilateral; Z87.440 Personal history of urinary (tract) infections; Z87.442 Personal history of urinary calculi; F79 Unspecified intellectual disabilities; Z79.899 Other long term (current) drug therapy; D64.9 Anemia, unspecified; Z01.818 Encounter for other preprocedural examination
CPT/HCPCS: 36561; 36415; 85027; 81025; 80048; 71046; 71045; 77001; C1752; C1788; Q9967; J2250; J3490 ×2; J0690; J2704; J1642; 532; J3010

== ENCOUNTER → 2019-03-18 | Outpatient (CLI) | payer BC, MEDICAID | LOC: LAB 09:53 | PROVIDERS: ATTEND Family Medicine | DX: N31.9 Neuromuscular dysfunction of bladder, unspecified (principal); N13.2 Hydronephrosis with renal and ureteral calculous obstruction; R69 Illness, unspecified ==